=== PATIENT | female | born 1960 | race Caucasian/White ===

== ENCOUNTER 2019-06-04 07:55 | Outpatient (CLI) | payer OTHER, SELFPAY ==
--- NOTE | ~2019-06-04 | MM_ITS ---
EXAMINATION: MM screening [facility] BI w angelita HISTORY: Screening mammogram TECHNIQUE: Craniocaudal and mediolateral oblique 3-D tomosynthesis images were obtained and synthetic 2-D images were generated. CAD analysis was submitted and interpreted. COMPARISON: Prior mammograms dating back to 11/04/2013 BREAST PARENCHYMAL COMPOSITION: There are scattered areas of fibroglandular density. FINDINGS: An asymmetry in the posterior third of the far outer right breast on the craniocaudal view has an appearance similar to prior mammograms, consistent with a benign finding. There is no evidence of suspicious mass, calcification, or architectural distortion to suggest malignancy in either breas t. There has been no suspicious interval change. IMPRESSION: 1. No mammographic evidence of malignancy. 2. Recommend routine screening mammography in one year. BI-RADS Category 2: Benign finding(s). Reviewed, dictated and finalized at location A. APPROVER
== END 2019-06-04 07:56 | disposition home or self-care (01) ==
LOC: ANHIMG 08:00
PROVIDERS: PCP Family Medicine; Visit Provider Family Medicine
DX: Z12.31 Encounter for screening mammogram for malignant neoplasm of breast (principal)
CPT/HCPCS: 77063; 77067

== ENCOUNTER 2020-03-22 02:28 | Outpatient (CLI) | payer OTHER, SELFPAY ==
[2020-03-22 19:47] LABS: SARS-CoV-2 RNA PCR Negative
== END 2020-03-22 02:29 | disposition home or self-care (01) ==
LOC: ANHCOVIDDT 02:28
PROVIDERS: PCP Family Medicine; Visit Provider Internal Medicine Gastroenterology
DX: Z01.812 Encounter for preprocedural laboratory examination (principal); Z20.828 Contact with and (suspected) exposure to other viral communicable diseases
CPT/HCPCS: 87635; C9803; U0003

== ENCOUNTER 2020-03-25 00:49 | Day surgery (SDC) | payer OTHER, SELFPAY ==
[2020-03-21 11:00] VITALS: BMI 23.1
[2020-03-25 11:13] VITALS: BP 133/80; PULSE 65; RESP 16; TEMP 36.8; O2SAT 100
[2020-03-25] MEDS: LACTATED RINGERS 1,000 ML 150 ML IV CONT (11:15)
--- NOTE | 2020-03-25 12:14 | PM.HPGS ---
History of Present Illness History of Present Illness Consent: Risks, benefits, and alternatives have been discussed and questions answered. Patient agrees to proceed with procedure. Chief complaint: neoplasm screening Narrative: Veronica Allan is a 59 year old female here for screening colonoscopy Review of Systems Constitutional: Constitutional: Denies headache(s) and Denies weakness Eyes: Eyes: Denies blurry vision ENT: Reports Normal hearing present, Denies headache(s) and Denies neck pain Cardiovascular: Cardiovascular: Denies chest pain and Denies dyspnea Respiratory: Respiratory: Denies dyspnea Gastrointestinal: Gastrointestinal: Reports no additional gastrointestinal complaints Genitourinary: Genitourinary: Denies dysuria Musculoskeletal: Musculoskeletal: Denies neck pain Integumentary/Breasts: Skin/Breast: Denies dry skin Neurologic: Reports Normal hearing present, Denies headache(s) and Denies weakness Psychiatric: Psychiatric: Denies anxiety Endocrine: Endocrine: Denies change in body appearance Hematologic/Lymphatic: Hematologic/Lymphatic: Denies easy bleeding Allergic/Immunologic: Allergic/Immunologic: Denies urticaria PMFSH Past Medical History Medical History Colon cancer screening De Quervain's disease (radial styloid tenosynovitis) MURTAZA (generalized anxiety disorder) Gastritis and duodenitis GERD (gastroesophageal reflux disease) PAF (paroxysmal atrial fibrillation) PVC (premature ventricular contraction) Tobacco consumption Family History Family History Father Family history of premature coronary heart disease, Onset Age: 68 Hypertension Family history of elevated blood lipids Patient's father is Sibling Family history of premature coronary heart disease, Onset Age: 37 Mother Hypertension Social History Social History Social History: Years smoked: 35 Smoking status: Light tobacco smoker Tobacco type: cigarettes Second hand tobacco smoke exposure: No Smoking end date: 05/06/16 Alcohol intake: never Substance use: never Substance use type: does not use Living arrangements: with family Gender identity (if verbalized by the patient): Female Spiritual care concerns: No Meds Home Medications and Allergies Home Medications Medication Instructions Recorded Confirmed Type fluticasone propionate 50 1 spray NASAL DAILY 04/06/19 03/21/20 History mcg/actuation nasal spray,suspension omeprazole 40 mg capsule,delayed 40 mg PO DAILY #90 cap 04/06/19 03/21/20 Rx release pravastatin 20 mg tablet 20 mg PO DAILY #30 tablet 12/29/19 03/21/20 Rx tretinoin 0.025 % topical cream 1 applic TOPICAL .qd #45 gm 01/18/20 03/21/20 Rx diltiazem HCl 60 mg 60 mg PO BID #60 cap 03/18/20 03/21/20 Rx capsule,extended release 12 hr Ip6 2 cap PO DAILY 03/21/20 03/21/20 History L. gasseri-B. bifidum-B longum 1 cap PO DAILY 03/21/20 03/21/20 History [Probiotic Colon Care] alprazolam [Xanax] 0.175 mg PO BID 03/21/20 03/21/20 History ascorbic acid (vitamin C) 500 mg PO DAILY 03/21/20 03/21/20 History cholecalciferol (vitamin D3) 25 mcg PO DAILY 03/21/20 03/21/20 History [Vitamin D3] coQ10 (ubiquinol) 200 mg PO DAILY 03/21/20 03/21/20 History lisinopril 5 mg PO DAILY 03/21/20 03/21/20 History Allergies Allergy/AdvReac Type Severity Reaction Status Date / Time doxycycline Allergy Unknown hives Verified 03/25/20 11:11 metronidazole Allergy Unknown hives Verified 03/25/20 11:11 Vital Signs Vital Signs - 24 hr 03/25/20 11:13 Temperature 98.2 F Pulse Rate 65 Respiratory Rate 16 Blood Pressure 133/80 Pulse Oximetry 100 Exam Const: General: comfortable and no acute distress HENMT: General nose exam: Normal nares present Eyes: General: appearance normal, both eyes and all related structures Neck: Neck: n
--- NOTE | 2020-03-25 12:16 | WPDANESEPPF ---
Anes - Initial Pre Proc Eval Procedure: Operation Date: 03/25/20 12:45 Proposed Procedures p Screening Colonoscopy - Bayron Foster MD Date/Time: 03/25/20 12:16 Surgeon: Bayron Foster MD Pre Op Diagnosis: neoplasm screening Patient Data Age: 59 Gender: F Height: 1.7 m Weight: 66.9 kg Last Vital Signs Temp 36.8 C 03/25/20 11:13 Pulse 65 03/25/20 11:13 Resp 16 03/25/20 11:13 BP 133/80 03/25/20 11:13 Pulse Ox 100 03/25/20 11:13 Allergies Allergy/AdvReac Type Severity Reaction Status Date / Time doxycycline Allergy Unknown hives Verified 03/25/20 11:11 metronidazole Allergy Unknown hives Verified 03/25/20 11:11 Home Medications Medication Instructions Recorded Confirmed Type fluticasone propionate 50 1 spray NASAL DAILY 04/06/19 03/21/20 History mcg/actuation nasal spray,suspension omeprazole 40 mg capsule,delayed 40 mg PO DAILY #90 cap 04/06/19 03/21/20 Rx release pravastatin 20 mg tablet 20 mg PO DAILY #30 tablet 12/29/19 03/21/20 Rx tretinoin 0.025 % topical cream 1 applic TOPICAL .qd #45 gm 01/18/20 03/21/20 Rx diltiazem HCl 60 mg 60 mg PO BID #60 cap 03/18/20 03/21/20 Rx capsule,extended release 12 hr Ip6 2 cap PO DAILY 03/21/20 03/21/20 History L. gasseri-B. bifidum-B longum 1 cap PO DAILY 03/21/20 03/21/20 History [Probiotic Colon Care] alprazolam [Xanax] 0.175 mg PO BID 03/21/20 03/21/20 History ascorbic acid (vitamin C) 500 mg PO DAILY 03/21/20 03/21/20 History cholecalciferol (vitamin D3) 25 mcg PO DAILY 03/21/20 03/21/20 History [Vitamin D3] coQ10 (ubiquinol) 200 mg PO DAILY 03/21/20 03/21/20 History lisinopril 5 mg PO DAILY 03/21/20 03/21/20 History Patient hx anesthesia problems: none Family hx anesthesia problems: none [facility] Past Medical History Medical History Colon cancer screening De Quervain's disease (radial styloid tenosynovitis) MURTAZA (generalized anxiety disorder) Gastritis and duodenitis GERD (gastroesophageal reflux disease) PAF (paroxysmal atrial fibrillation) PVC (premature ventricular contraction) Tobacco consumption Family History Family History Father Family history of premature coronary heart disease, Onset Age: 68 Hypertension Family history of elevated blood lipids Patient's father is Sibling Family history of premature coronary heart disease, Onset Age: 37 Mother Hypertension Social History Social History Social History: Years smoked: 35 Smoking status: Light tobacco smoker Tobacco type: cigarettes Second hand tobacco smoke exposure: No Smoking end date: 05/06/16 Alcohol intake: never Substance use: never Substance use type: does not use Living arrangements: with family Gender identity (if verbalized by the patient): Female Spiritual care concerns: No Anes - Eval Final PreProcedure Day of Procedure 03/25/20 12:16 Patient weight: normal Heart: regular rate and rhythm Lungs: clear to auscultation and normal air movement Airway: Mallampati scale class II Neurological: alert and oriented Last oral intake: >/= 8 hours ASA classification: III Emergent: no Anesthetic plan: proceed Anesthesia type and monitoring: general GIVS Informed Consent: The patient's anesthetic plan and its attendant risks and benefits were discussed with the patient/family/POA. Questions were solicited and answers provided to the satisfaction of the patient/family/POA.
[2020-03-25 12:34] VITALS: BP 105/59; PULSE 65; RESP 20; O2SAT 99
[2020-03-25 12:44] VITALS: BP 108/63; PULSE 64; RESP 19; O2SAT 100
== END 2020-03-25 13:04 | disposition home or self-care (01) ==
PROVIDERS: PCP Family Medicine; Visit Provider Internal Medicine Gastroenterology
PROC: 0DJD8ZZ Inspection of Lower Intestinal Tract, Via Natural or Artificial Opening Endoscopic (ICD-10-PCS; CPT 45378; principal; 2020-03-25 12:45)
DX: Z12.11 Encounter for screening for malignant neoplasm of colon (principal); D12.0 Benign neoplasm of cecum; K64.8 Other hemorrhoids; I48.0 Paroxysmal atrial fibrillation; I49.3 Ventricular premature depolarization; K21.9 Gastro-esophageal reflux disease without esophagitis; F41.1 Generalized anxiety disorder; Z87.891 Personal history of nicotine dependence
CPT/HCPCS: 45385; 88305; J2704; J7120

== ENCOUNTER 2020-06-23 10:04 | Outpatient (CLI) | payer OTHER, SELFPAY ==
--- NOTE | ~2020-06-23 | MM_ITS ---
EXAMINATION: MM screening [facility] BI w angel[facility] HISTORY: Screening TECHNIQUE: Craniocaudal and mediolateral oblique 3-D tomosynthesis images were obtained and synthetic 2-D images were generated. CAD analysis was submitted and interpreted. COMPARISON: Comparison to multiple prior studies sequentially, with oldest reviewed study dated 06/2013. BREAST PARENCHYMAL COMPOSITION: There are scattered areas of fibroglandular density. FINDINGS: There is no evidence of suspicious mass, calcification, or architectural distortion to sugg est malignancy in either breast. There has been no suspicious interval change. IMPRESSION: 1. No mammographic evidence of malignancy. 2. Recommend routine screening mammography in one year. BI-RADS Category 1: Negative Reviewed, dictated and finalized at location A. ATIONS ARCHITECT
== END 2020-06-23 10:05 | disposition home or self-care (01) ==
LOC: ANHIMG 10:06
PROVIDERS: PCP Family Medicine; Visit Provider Family Medicine
DX: Z12.31 Encounter for screening mammogram for malignant neoplasm of breast (principal)
CPT/HCPCS: 77063; 77067

== ENCOUNTER 2021-02-25 19:47 | Observation (INO) | payer OTHER, SELFPAY ==
[2021-02-25] VITALS (50 sets, daily range): BP systolic 102–181; BP diastolic 71–134; PULSE 81–144; RESP 11–30; TEMP 36.4–36.6; O2SAT 98–100
--- NOTE | ~2021-02-25 | XR_ITS ---
XR chest 1V portable DATE: 02/25/2021 20:26 INDICATION: Chest heaviness. Atrial fibrillation with rapid ventricular response 2 hours ago. Hyperte nsion. PVCs. TECHNIQUE: Portable upright AP chest on 02/25/2021 at 2021 hours COMPARISON: 05/09/2017 PA and lateral chest FINDINGS: Bilateral hyperinflation. No pulmonary infiltrate or consolidation, pleural effusion or pul monary vascular congestion or pneumothorax. Normal heart size. No hilar or mediastinal enlargement is evident. Diffuse osteopenia. IMPRESSION: No active cardiopulmonary disease Reviewed, dictated and finalized at location A.
--- NOTE | 2021-02-25 19:51 | ECG_ITS ---
Measurements Intervals Sims Rate: 109 P: SD: 0 QRS: -1 QRSD: 98 T: -13 QT: 338 QTc: 456 Interpretive Statements ATRIAL FIBRILLATION WITH RAPID VENTRICULAR RESPONSE INCOMPLETE RIGHT BUNDLE BRANCH BLOCK ST-T WAVE ABNORMALITY IN INFERIOR LEADS- CONSIDER ISCHEMIA BASELINE ARTIFACT- II, III, AVR, AVF, V1, V3-V6 ABNORMAL ECG Electronically Signed On 02-25-2021 23:45:37 CDT by Ovidio Ochoa D.O.
--- NOTE | 2021-02-25 20:10 | PC.NURSE ---
Pt reports PVCs with antihistamines
--- NOTE | 2021-02-25 20:22 | PC.NURSE ---
Verbal order from Dr Jennings for 10 mg of IV cardizem
--- NOTE | 2021-02-25 20:37 | PC.NURSE ---
Dr Jennings at bedside. Pt HR 137. Verbal order changed to 20 mg Diltiazem
--- NOTE | 2021-02-25 20:42 | PC.NURSE ---
Clarified with JAZLYN Coon to give protocol aspirin
[2021-02-25 20:43] LABS: Basophils Absolute Auto 0.1 K/mm3 (0.0-0.1); Basophils Percent Auto 0.8 % (0.2-1.2); Eosinophils Absolute Auto 0.3 K/mm3 (0-0.3); Eosinophils Percent Auto 1.9 % (0-4.4); Hematocrit 44.1 % (37.0-47.0); Hemoglobin 14.7 g/dL (12.0-15.0); Immature Granulocyte Absolute 0.16 K/mm3 (0.00-0.031); Immature Granulocyte Percent A 1.1 % (0-0.5); Lymphocytes Absolute Auto 4.67 K/mm3 (0.9-3.2); Lymphocytes Percent Auto 31.1 % (18.3-44.2); Mean Corpuscular HGB Conc 33.3 g/dl (32-36); Mean Corpuscular Hemoglobin 30.8 pg (26-34); Mean Corpuscular Volume 92.5 fl (80-100); Mean Platelet Volume 9.1 fl (7.4-10.4); Monocytes Absolute Auto 1.1 K/mm3 (0.1-0.6); Neutrophils Absolute Auto 8.7 K/mm3 (1.3-6.7); Neutrophils Percent Auto 58.1 % (45.5-73.1); Platelet Count Result 352 k/mm3 (150-375); Red Blood Count 4.77 M/mm3 (4.2-5.4); Red Cell Distribution Width 12.7 % (11.5-14.5)
[2021-02-25] MEDS: ASPIRIN 81 MG CHEWABLE TABLET 324 MG PO (20:45)
[2021-02-25] MEDS: dilTIAZem HCl INJ 25 MG/5 ML VIAL 20 MG IV PUSH (20:49)
[2021-02-25 20:53] LABS: INR 0.9; Prothrombin Time 11.6 Seconds (11.1-14.7)
[2021-02-25 20:54] LABS: Partial Thromboplastin Time 26.8 SECONDS (22.3-36.8)
[2021-02-25 20:57] LABS: Anion Gap 10 mmol/L (8-16); Blood Urea Nitrogen 15 mg/dL (7-17); Calcium 10.1 mg/dL (8.4-10.2); Carbon Dioxide 25 mmol/L (22-30); Chloride 106 mmol/L (98-107); Estimated CRCL calculation 73 ml/min; Estimated Glomerular Filt Rate > 60; Glucose 99 mg/dL (65-110); Potassium 3.7 mmol/L (3.4-5.0); Sodium 141 mmol/L (137-145)
--- NOTE | 2021-02-25 21:00 | PC.NURSE ---
Cardizem pushed slowly over 7 minutes. HR 88, SpO2 100%, BP 117/85
[2021-02-25 21:09] LABS: Troponin I < 0.012 ng/mL (0.000-0.034)
--- NOTE | 2021-02-25 21:24 | ED.GENADULT ---
HPI - General Adult General Chief complaint: Arrhythmia/Palpitations Stated complaint: tachycardia Time Seen by Provider: 02/25/21 20:12 History of Present Illness HPI narrative: Patient 60-year-old female presents the emergency department with chief complaint of fast heart rate and irregular heartbeat. The patient reports she has had episodes before in the past of atrial fibrillation but has had a Holter monitor that showed that she is just been having some PVCs. Patient does report that she takes Cardizem daily. Patient reports she is not on any anticoagulant. Patient states that she tried Valsalva maneuvers at home to try to convert herself without success and was running in the 120s to 130s. Patient states she had a little bit of fullness in her chest but would not describe it is official chest pain. Patient denies fever denies vomiting denies diarrhea denies abdominal pain. Related Data Home Medications Medication Instructions Recorded Confirmed fluticasone propionate 50 1 spray NASAL DAILY 04/06/19 02/09/21 mcg/actuation nasal spray,suspension Ip6 2 cap PO DAILY 03/21/20 02/09/21 L. gasseri-B. bifidum-B longum 1 cap PO DAILY 03/21/20 02/09/21 [Probiotic Colon Care] ascorbic acid (vitamin C) 500 mg PO DAILY 03/21/20 02/09/21 cholecalciferol (vitamin D3) 25 mcg PO DAILY 03/21/20 02/09/21 [Vitamin D3] coQ10 (ubiquinol) 200 mg PO DAILY 03/21/20 02/09/21 magnesium 125 mg PO 02/25/21 Allergies Allergy/AdvReac Type Severity Reaction Status Date / Time doxycycline Allergy Unknown hives Verified 02/25/21 20:08 metronidazole Allergy Unknown hives Verified 02/25/21 20:08 buspirone [From BuSpar] AdvReac Intermediate elevated BP Verified 02/25/21 20:08 cetirizine [From Zyrtec] AdvReac Other Verified 02/25/21 20:10 diphenhydramine AdvReac Other Verified 02/25/21 20:10 [From Benadryl] metoprolol AdvReac Other Verified 02/25/21 20:10 Review of Systems Review of Systems: A 10 system review of systems was completed on the patient and is negative except for what is stated in the HPI. Nursing and ancillary documentation was reviewed. PMFSH Past Medical History Medical History Colon cancer screening De Quervain's disease (radial styloid tenosynovitis) MURTAZA (generalized anxiety disorder) Gastritis and duodenitis GERD (gastroesophageal reflux disease) PAF (paroxysmal atrial fibrillation) PVC (premature ventricular contraction) Tobacco consumption Surgical History Surgical History H/O colonoscopy with polypectomy repeat in 2024 Family History Family History Father Family history of premature coronary heart disease, Onset Age: 68 Hypertension Family history of elevated blood lipids Patient's father is Sibling Family history of premature coronary heart disease, Onset Age: 37 Mother Hypertension Social History Social History Social History: Years smoked: 35 Smoking status: Former smoker Tobacco type: cigarettes Second hand tobacco smoke exposure: No Smoking end date: 05/06/16 Alcohol intake: never Substance use: never Substance use type: does not use Gender identity (if verbalized by the patient): Female Sexual Orientation (if Verbalized by the Patient): Straight or Heterosexual Spiritual care concerns: No Exam Narrative: GENERAL: Well-appearing, well-nourished, and in no acute distress. HEAD: Normocephalic, atraumatic. EYES: PERRLA and EOMI. ENT: Nares clear, no rhinorrhea or epistaxis. Mucous membranes moist. NECK: Supple. CHEST: Clear to auscultation. No respiratory distress. HEART: Tachycardic irregularly irregular rhythm. No murmur heard. Normal peripheral pulses. ABDOMEN: Soft, nontender, nondistended, normal active bowel sounds. EXTREMITI
[2021-02-25 22:07] LABS: Add Urine Microscopic? YES; Appearance Urine Clear (Clear); Bacteria Urine Trace /hpf; Bilirubin Urine Negative (Negative); Blood Urine 1+ (Negative); Color Urine Colorless (Yellow); Glucose Urine UA Negative (Negative); Ketones Urine Negative (Negative); Leukocyte Esterase Ur Negative LEU/UL (Negative); Nitrate Urine Negative (Negative); Protein Urine Negative (Negative); Squamous Epithelial Cell Urine Rare /hpf (Few); Urobilinogen Urine Negative mg/dL (<2.0); WBC Urine 0-3 /hpf
[2021-02-25 22:13] LABS: Specific Grav Ur 1.002 (1.001-1.035)
[2021-02-25 22:15] LABS: Magnesium 2.1 mg/dL (1.6-2.3)
--- NOTE | 2021-02-25 22:17 | PC.NURSE ---
Cardizem drip started at 5 mg / hour per orders. HR 114, 98%, 102/77
--- NOTE | 2021-02-25 22:28 | PM.IMHP ---
H&P: HPI History of Present Illness Date/Time: 02/25/21 23:00 Chief Complaint: Increased heart rate Narrative: 60-year-old female with a past medical history of anxiety, GERD and paroxysmal atrial fibrillation who presented to the ER from home via private vehicle due to elevated heart rate and palpitations. She initially had an episode of atrial fibrillation back in 2018. She did not want be placed on a beta-danelle that time due to history of symptomatic bradycardia with beta-danelle. She was eventually sent home with [facility] but she never got the prescription filled because she was concerned about the medication after reading about it. She later had a heart Holter August 2018 which demonstrated occasional ectopic activity with PVCs without evidence of lory atrial fibrillation. She reports that she has symptomatic even with PVCs and ectopic beats. She knows immediately whenever she was into AFib. She is eventually started on Cardizem to treat her hypertension and palpitations. Her chads Vasc score was 2 she was not placed on anticoagulants due to history of duodenitis and GI bleeding in 2018. Cardiology notes also indicate the patient was a low risk and not require chronic anticoagulation. She reports frequent symptoms of irregular heartbeat consistent with her history of PVCs. However, over the last several months since her mother in October, after falling down a flight of stairs, she has been under increased stress. Her brother has schizophrenia and she is trying to move her brother out of her mother's home. She has subsequently had increased episodes of palpitations. She states that over the last week she has had several times of palpitations that have lasted for several minutes. Most the time when she bears down she can alleviate the symptoms. She came in today when her symptoms started around 6:30 p.m. when her symptoms persisted despite Valsalva maneuver. She denies any caffeine consumption, supplement consumption, missed medication doses, or illicit substance use. She did smoke a couple of cigarettes today. She reports that she actually quit smoking in 2018 and only smokes occasional cigarette when under extreme stress. She denies having any chest pain. She has noticed dyspnea on exertion such as climbing a flight of stairs at work. She reports that she will take couple of minutes to recover. She has not had any orthopnea, paroxysmal nocturnal dyspnea or lower extremity swelling. She thinks that the shortness of breath with climbing stairs is due to wearing a mask at work. She reports her last echocardiogram was in 2017 and demonstrated thickening of the mitral leaflets. She previously used to follow with Dr. Melendez but would like to switch to a different it systems administrator within the same Cardiology group. She denies any cough, congestion, fever, or known ill contacts. The patient was still in AFib RVR when I evaluated her in the ER. Approximately 20 minutes after patient arrived to the IMU she converted normal sinus rhythm and had a heart rate in the 55-65 range. She does report a history of GERD. She has not been having any epigastric discomfort or substernal burning. However recent weeks she did notice some burning in her posterior throat. She was initially given a course of steroids which helped her symptoms until the steroids were tapered off. She went to see her primary care physician who felt the symptoms were due to patient's reflux due to some posterior oral pharyngeal erythema. She reports an associated hoarseness to her voice. She has not had any fevers or chills. Her symptoms did improve after taking Gaviscon. She has been compliant with her home omeprazole. She states that she cannot take H2 danelle such as Pepcid because they cause her to have more palpitations. Review of Systems Review of Systems: 12 systems were reviewed with pertinent positives and negatives per HPI. Except as documented in the HPI, all other systems were
--- NOTE | 2021-02-25 23:56 | PC.NURSE ---
This patient, Veronica Allan, was admitted to IMU Room 210-01. Patient/family oriented to hospital policies and general routines including ID bracelet, bed and alarms, visiting hours, pain management, procedures, bathroom and other care routines, personal items, smoking policy, room service/diet, and visiting hours. Information on how to activate the Rapid Response Team has been discussed. Patient/Family are encouraged to report perceived risks to care and to ask questions if they do not understand what they are told or what they should do.
[2021-02-26] VITALS (11 sets, daily range): BP systolic 104–126; BP diastolic 65–79; PULSE 54–82; RESP 15–18; TEMP 36.5–36.7; O2SAT 97–100
[2021-02-26 01:08] LABS: Troponin I < 0.012 ng/mL (0.000-0.034)
[2021-02-26] MEDS: ALPRAZolam (*CRX) 0.25 MG TABLET (01:19)
[2021-02-26 04:21] LABS: Hematocrit 39.9 % (37.0-47.0); Hemoglobin 13.6 g/dL (12.0-15.0); Mean Corpuscular HGB Conc 34.1 g/dl (32-36); Mean Corpuscular Hemoglobin 30.9 pg (26-34); Mean Corpuscular Volume 90.7 fl (80-100); Mean Platelet Volume 9.4 fl (7.4-10.4); Platelet Count Result 341 k/mm3 (150-375); Red Cell Distribution Width 12.7 % (11.5-14.5); White Blood Count 12.2 K/mm3 (4.5-10.0)
[2021-02-26 04:34] LABS: Anion Gap 7 mmol/L (8-16); Blood Urea Nitrogen 17 mg/dL (7-17); Calcium 9.4 mg/dL (8.4-10.2); Carbon Dioxide 25 mmol/L (22-30); Chloride 107 mmol/L (98-107); Estimated CRCL calculation 73 ml/min; Estimated Glomerular Filt Rate > 60; Glucose 94 mg/dL (65-110); Potassium 4.1 mmol/L (3.4-5.0); Sodium 139 mmol/L (137-145)
[2021-02-26 04:46] LABS: Troponin I < 0.012 ng/mL (0.000-0.034)
[2021-02-26] MEDS: MAGNESIUM OXIDE 200 MG TABLET PO (08:07)
[2021-02-26] MEDS: lisinopriL 5 MG TABLET PO (08:07)
[2021-02-26] MEDS: PRAVASTATIN SODIUM 20 MG TABLET PO (08:07)
[2021-02-26] MEDS: PANTOPRAZOLE SODIUM IV 40 MG VIAL IV PUSH (08:07)
[2021-02-26] MEDS: FLUTICASONE PROPIONATE 0.05% NA SPR 16 GM BTL (*BKC) 1 SPRAY NASAL (08:09)
--- NOTE | 2021-02-26 10:22 | PM.CNCAR ---
Assessment and Plan Assessment and plan (1) PAF (paroxysmal atrial fibrillation): Code(s): I48.0 - Paroxysmal atrial fibrillation Status: Acute Assessment and Plan: She is back in sinus rhythm at this point. Recommend that she continue her current dose of diltiazem. Atrial fibrillation likely related increased stress although other possibilities do exist including ischemia. Stress test to be performed as an outpatient. Exercise stress echocardiogram will be performed. She also needs an outpatient echocardiogram to evaluate her murmur in mitral valve. Regarding anticoagulation versus anti-platelet therapy. She has a chads Vasc score of 2 and a chads score of 1. At this point she does not want to have full anticoagulation but is willing to start aspirin. Will start aspirin 325 mg p.o. daily. Enteric-coated aspirin recommended and she does take omeprazole which will help reduce risk of esophagitis or gastritis. If she wishes reestablished with electrophysiology, will refer her back to [facility]. Follow-up with us as an outpatient (2) PVC (premature ventricular contraction): Code(s): I49.3 - Ventricular premature depolarization Status: Acute Assessment and Plan: Continue diltiazem. (3) Benign essential HTN: Code(s): I10 - Essential (primary) hypertension Status: Acute Assessment and Plan: At goal. (4) Tobacco consumption: Code(s): Z72.0 - Tobacco use Status: Acute Assessment and Plan: Tobacco abuse counseling was performed. History of Present Illness History of Present Illness Consult date/time: 02/26/21 10:22 Requesting physician: Sunil Jennings MD Consult reason: atrial fibrillation Reason For Visit: Afib w/RVR Narrative: Reason for consultation: Atrial fibrillation Date of service 02/26/2021 Requesting provider: Dr. Jennings History patient is a 60-year-old female who does have a history of paroxysmal atrial fibrillation. She had seen Dr. Melendez in the past as well as Dr. Mauricio for [place] regarding electrophysiology opinion. She also has a history of PVCs. Symptoms started back in 2018. She was on a beta-danelle but with symptomatic bradycardia and felt poorly. There was a conversation about switching her to Multaq or sotalol but she did not want does medications either. She did see Dr. Mauricio for an opinion and conversation and decision was to start diltiazem. She has remained on diltiazem since that time. She has been under more stress as of late. Her mother and there is more stress with a brother who has schizophrenia. More recently she has been having some atrial fibrillation couple times per week which will last for 5-10 seconds at a time. She also has her standard PVCs which feels like a flip-flop. They are different feelings. She did have some fullness yesterday after her tachycardia started. The fullness in her chest has since stopped. She did developed tachycardia at around 6:30 a.m. yesterday evening. She came to the hospital and found to be in atrial fibrillation with rapid ventricular response. She was given diltiazem and eventually converted to sinus rhythm. She otherwise denies any chest pain, shortness of breath, syncope, presyncope, paroxysmal nocturnal dyspnea, orthopnea, edema palpitations. She is not on anticoagulation. She has a chads score of 1 and a chads Vasc score of 2. Review of Systems Review of Systems: All systems reviewed & are unremarkable except as noted in HPI and below Constitutional: Constitutional: Denies weakness Eyes: Eyes: Denies blurry vision ENT: Reports Normal hearing present Cardiovascular: Cardiovascular: Denies chest pain and Reports palpitations Respiratory: Respiratory: Denies dyspnea Gastrointestinal: Gastrointestinal: Denies abdominal pain Genitourinary: Genitourinary: Denies flank pain Musculoskeletal: Musculoskeletal: Denies back pain and Denies neck pain Int
--- NOTE | 2021-02-26 11:03 | PM.DS ---
DS: Admitting Diagnosis Discharge Date 02/22/2021 Admitting Diagnosis palpitation DS: Discharge Diagnosis Discharge Diagnosis (1) Atrial fibrillation with RVR: Code(s): I48.91 - Unspecified atrial fibrillation Status: Acute Assessment and Plan: The patient converted to sinus rhythm after arrival IMU. Cardizem drip has subsequently been discontinued. resumed the patient's home Cardizem. Given the patient's report of symptoms of dyspnea on exertion with climbing stairs will check echocardiogram to further delineate cardiac structure and function as her last echo was in 2018. this can be done as an outpatient basis and is already is scheduled The patient is an established patient with [facility] cardiology (heart care group). She will need follow-up with Cardiology in long-term. She would like to change milieu manager within the group. I notified her that she could discuss this with Cardiology time of consult. she will follow-up with Dr. suh who evaluated her during the hospital stay as well. The patient's chads Vasc score is 2 given she is a female and has a history of essential hypertension. Patient would benefit from long-term anticoagulants but will defer initiation to Cardiology and the patient after discussion of risks and benefits. Patient does not seem to be all that interested in long-term anticoagulants. This was discussed with the patient and was willing to start aspirin 325 mg daily She also sees Dr. Mauricio from [facility] team who she can follow up with as well She also has frequent PVCs which feels like a flip-flop. And very symptomatic (2) GERD (gastroesophageal reflux disease): Qualifiers: Esophagitis presence: esophagitis presence not specified Qualified Code(s): K21.9 - Gastro-esophageal reflux disease without esophagitis Code(s): K21.9 - Gastro-esophageal reflux disease without esophagitis Status: Acute Assessment and Plan: The patient does have symptoms concerning for worsening GERD/reflux. Will place patient on IV Protonix b.i.d. currently. May consider addition of care if 8 versus continuing Gaviscon. She may benefit from referral to Gastroenterology as outpatient. She has seen Dr. Foster in the past. Will continue omeprazole as an outpatient basis as previously done (3) Tobacco consumption: Code(s): Z72.0 - Tobacco use Status: Acute Assessment and Plan: I discussed with the patient and any use of tobacco could cause exacerbate cardiac rhythm issues. She verbalized understanding. She does not intend to continue smoking. (4) Leukocytosis: Qualifiers: Leukocytosis type: unspecified Qualified Code(s): D72.829 - Elevated white blood cell count, unspecified Code(s): D72.829 - Elevated white blood cell count, unspecified Status: Acute Assessment and Plan: Mild leukocytosis. The patient does have some posterior oral pharyngeal erythema but appearance is not consistent with strep. Patient has no evidence of acute infectious process. recheck CBC lowered without antibiotic likely reactive DS: Summary Hospital Course Hospital Course: history of present illness:60-year-old female with a past medical history of anxiety, GERD and paroxysmal atrial fibrillation who presented to the ER from home via private vehicle due to elevated heart rate and palpitations. She initially had an episode of atrial fibrillation back in 2018. She did not want be placed on a beta-danelle that time due to history of symptomatic bradycardia with beta-danelle. She was eventually sent home with [facility] but she never got the prescription filled because she was concerned about the medication after reading about it. She later had a heart Holter August 2018 which demonstrated occasional ectopic activity with PVCs without evidence of lory atrial fibrillation. She reports that she has symptomatic even with PVCs
== END 2021-02-26 11:53 | disposition home or self-care (01) ==
LOC: ANHED 22:46 → ANHIMU 02-26 11:03
PROVIDERS: Admitting Provider Internal Medicine; Emergency Provider Emergency Medicine; PCP Family Medicine; Visit Provider Internal Medicine
DX: I48.91 Unspecified atrial fibrillation (principal); K21.9 Gastro-esophageal reflux disease without esophagitis; D72.829 Elevated white blood cell count, unspecified; I49.3 Ventricular premature depolarization; I10 Essential (primary) hypertension; F17.210 Nicotine dependence, cigarettes, uncomplicated
CPT/HCPCS: 36415; 71045; 80048; 81001; 83735; 84443; 84484; 85025; 85027; 85610; 85730; 93005; 96365; 96366; 96375; 99285; A9270; C9113; G0378

== ENCOUNTER 2021-03-14 18:33 | Observation (INO) | payer OTHER, SELFPAY ==
[2021-03-14] VITALS (20 sets, daily range): BP systolic 113–175; BP diastolic 68–93; PULSE 57–71; RESP 10–24; TEMP 36.6; O2SAT 95–100
--- NOTE | ~2021-03-14 | XR_ITS ---
EXAMINATION: XR chest 2V EXAM DATE: 03/14/2021 19:09 INDICATION: Chest Pinching LT Side, palpitations,@ 1730,Nausea,HTN,AFIB . TECHNIQUE: Frontal and lateral projections of the chest obtained and reviewed. Comparison is made to prior examination from 02/25/2021. FINDINGS: The lungs are hyperinflated which can be seen with chronic obstructive pulmonary disease (a clinical diagnosis of functional impairment), but is not diagnostic of it. The lungs are clear. T here are no pleural effusions. The cardiomediastinal silhouette is within normal limits. There is n o pneumothorax suspected. The bones and soft tissues are unremarkable. IMPRESSION: 1. No acute cardiopulmonary findings. 2. Hyperinflation. Reviewed, dictated and finalized at location A. ER BAGGER
--- NOTE | 2021-03-14 18:37 | ECG_ITS ---
Measurements Intervals [place] Rate: 70 P: 66 ND: 157 QRS: 52 QRSD: 101 T: 41 QT: 401 QTc: 434 Interpretive Statements SINUS RHYTHM INCOMPLETE RIGHT BUNDLE BRANCH BLOCK BORDERLINE ST ABNORMALITY- ANTEROLAT/INF LEADS BASELINE ARTIFACT- II, III, AVR, AVF, V3-V6 BORDERLINE ECG Electronically Signed On 03-14-2021 20:18:26 PLANT CARE WORKER by Ovidio Ochoa D.O.
[2021-03-14 19:08] LABS: Basophils Absolute Auto 0.1 K/mm3 (0.0-0.1); Basophils Percent Auto 0.6 % (0.2-1.2); Eosinophils Absolute Auto 0.3 K/mm3 (0-0.3); Eosinophils Percent Auto 3.4 % (0-4.4); Hematocrit 37.8 % (37.0-47.0); Hemoglobin 12.9 g/dL (12.0-15.0); Immature Granulocyte Absolute 0.05 K/mm3 (0.00-0.031); Immature Granulocyte Percent A 0.5 % (0-0.5); Lymphocytes Absolute Auto 4.54 K/mm3 (0.9-3.2); Mean Corpuscular HGB Conc 34.1 g/dl (32-36); Mean Corpuscular Volume 90.9 fl (80-100); Mean Platelet Volume 9.1 fl (7.4-10.4); Monocytes Absolute Auto 0.7 K/mm3 (0.1-0.6); Neutrophils Absolute Auto 4.2 K/mm3 (1.3-6.7); Neutrophils Percent Auto 42.5 % (45.5-73.1); Platelet Count Result 300 k/mm3 (150-375); Red Blood Count 4.16 M/mm3 (4.2-5.4); Red Cell Distribution Width 12.4 % (11.5-14.5); White Blood Count 9.9 K/mm3 (4.5-10.0)
[2021-03-14 19:17] LABS: INR 0.9; Prothrombin Time 11.8 Seconds (11.1-14.7)
[2021-03-14 19:18] LABS: Partial Thromboplastin Time 25.4 SECONDS (22.3-36.8)
[2021-03-14 19:21] LABS: Anion Gap 9 mmol/L (8-16); Blood Urea Nitrogen 15 mg/dL (7-17); Calcium 9.6 mg/dL (8.4-10.2); Carbon Dioxide 27 mmol/L (22-30); Chloride 102 mmol/L (98-107); Estimated CRCL calculation 52 ml/min; Estimated Glomerular Filt Rate 57; Glucose 121 mg/dL (65-110); Potassium 3.6 mmol/L (3.4-5.0); Sodium 138 mmol/L (137-145)
--- NOTE | 2021-03-14 19:25 | ED.GENADULT ---
HPI - General Adult General Chief complaint: Chest Pain Stated complaint: fast heart rate, chest discomfort Time Seen by Provider: 03/14/21 18:58 Source: patient and RN notes reviewed History of Present Illness HPI narrative: Patient is 60 y/o female complaining of chest pain and fast heart rate starting about 2 hours ago. She describes her chest discomfort as a fullness and rates as 7/10. Her chest pain radiates to her throat and left shoulder. She check her pulse and her HR was in 130s. She states that she had A fib recently. Related Data Home Medications Medication Instructions Recorded Confirmed fluticasone propionate 50 1 spray NASAL DAILY 04/06/19 02/26/21 mcg/actuation nasal spray,suspension Ip6 2 cap PO DAILY 03/21/20 02/26/21 Probiotic Colon Care 1 cap PO DAILY 03/21/20 02/26/21 ascorbic acid (vitamin C) 500 mg PO DAILY 03/21/20 02/26/21 cholecalciferol (vitamin D3) 25 mcg PO DAILY 03/21/20 02/26/21 [Vitamin D3] coQ10 (ubiquinol) 200 mg PO DAILY 03/21/20 02/26/21 magnesium 100 mg PO DAILY 02/26/21 02/26/21 Allergies Allergy/AdvReac Type Severity Reaction Status Date / Time doxycycline Allergy Unknown hives Verified 03/03/21 08:38 metronidazole Allergy Unknown hives Verified 03/03/21 08:38 buspirone [From BuSpar] AdvReac Intermediate elevated BP Verified 03/03/21 08:38 cetirizine [From Zyrtec] AdvReac Other Verified 03/03/21 08:38 diphenhydramine AdvReac Other Verified 03/03/21 08:38 [From Benadryl] metoprolol AdvReac Other Verified 03/03/21 08:38 Review of Systems Constitutional: Constitutional: Denies chills, Denies fever(s), Denies headache(s) and Denies weakness Eyes: Eyes: Denies blurry vision ENT: Denies headache(s) and Denies neck pain Cardiovascular: Cardiovascular: Reports chest pain, Reports rapid heart rate and Denies dyspnea Respiratory: Respiratory: Denies cough and Denies dyspnea Gastrointestinal: Gastrointestinal: Denies abdominal pain, Denies diarrhea, Denies nausea and Denies vomiting Genitourinary: Genitourinary: Denies hematuria and Denies dysuria Musculoskeletal: Musculoskeletal: Denies back pain and Denies neck pain Neurologic: Denies headache(s) and Denies weakness PMFSH Past Medical History Medical History Colon cancer screening De Quervain's disease (radial styloid tenosynovitis) Essential hypertension MURTAZA (generalized anxiety disorder) Gastritis and duodenitis Resulting in GI bleed 2017 GERD (gastroesophageal reflux disease) PAF (paroxysmal atrial fibrillation) PVC (premature ventricular contraction) Tobacco consumption Trigeminal neuralgia of right side of face Surgical History Surgical History H/O colonoscopy with polypectomy (~03/2020) repeat in 2024 History of oophorectomy, unilateral Resection of ovarian cyst Family History Family History Father Hypertension Acute myocardial infarction, Onset Age: 75 Hyperlipidemia Sibling Schizophrenia Brother Mother , At age 82 after falling on stairs. Hypertension Social History Social History Social History: She lives with her of 10 years. 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 She denies any alcohol or illicit substance use. She smoked as much as a half a pack of cigarettes per day time she has teenager into the age of 56. She still smokes in times of stress. Primary care physician: Dr. Aubrie Pederson Code status: Full code Surrogate decision maker: Smoking packs per day: 0.25 Smoking cigarettes per day: 5.0 Years smoked: 30 Smoking pack-years: 7.50 Smoking status: Former smoker Tobacco type: cigarettes Second hand tobacco smoke exposure: No Smoking end date: 05/06/16 Alcohol intake: never Estrada
[2021-03-14 19:32] LABS: Troponin I < 0.012 ng/mL (0.000-0.034)
--- NOTE | 2021-03-14 19:34 | PC.NURSE ---
Clarified with Dr Melendez, Pt takes 324 of aspirin daily, taken this AM. Cancelled protocol aspirin, verbal orders for GI cocktail for acid reflux.
[2021-03-14] MEDS: BELLADONNA ALK/PHENOB ELIX 10 ML, MAG HYDROX/ALUMINUM HYD/SIMETH 30 ML, LIDOCAINE HCL 2... PO (19:40)
[2021-03-14 22:00] LABS: Troponin I < 0.012 ng/mL (0.000-0.034)
--- NOTE | 2021-03-15 | EST_ITS ---
Patient Info Name: Veronica Allan Age: 60 years : 1960 Gender: Female Ht: 67 in Wt: 150 lbs BSA: 1.80 m2 HR: 62 bpm BP: 147 / 86 mmHg Heart Rhythm: Sinus Rhythm Exam Date: 03/15/2021 1:42 PM Exam Location: [facility] Patient Status: Outpatient Admit Date: 03/14/2021 Staff Ordering Physician: Rosa Polo Loss Prevention Officer: January Carias RDCS Attending Provider: DR JACI DYER Referring Physician: Melani GUTIERREZ; Exercise Technologist: Celine Hoyt CT Exercise Physician: Cami Jiménez MD Exam Type: CA stress echo Study Info Indications R07.9 - Chest pain, unspecified Treadmill exercise stress echocardiogram is performed. Summary 1. Left ventricular systolic function is hyperdynamic with an estimated ejection fraction of > 70 % and a reduction of chamber size with exercise. 2. Mild prolapse of the anterior mitral leaflet. 3. Hypertensive blood pressure response. 4. Good exercise tolerance. 5. Frequent APCs at peak exercise. 6. Negative stress echocardiogram for ischemia. Stress Echo Findings Left Ventricle Left ventricular systolic function is hyperdynamic with an estimated ejection fraction of > 70 % and a reduction of chamber size with exercise. Left Ventricle Left ventricular chamber size, wall thickness, systolic and diastolic function are normal with no regional wall motion abnormalities with an estimated ejection fraction of 60-65%. Left ventricular chamber dimension is normal. Left ventricular systolic function is Empty with an estimated ejection fraction of Empty. There is no increased left ventricular wall thickness. Left ventricular septal wall motion is normal. The left ventricular diastolic function is normal. Right Ventricle Right ventricular chamber dimension is normal. Right ventricular systolic function is normal. Left Atria Left atrial chamber dimension is normal. Right Atria Right atrial chamber dimension is normal. Aortic Valve The aortic valve is trileaflet. There is no aortic valve sclerosis. There is no aortic valve stenosis. There is no aortic valve regurgitation. Pulmonary Valve The pulmonic valve is normal. There is no pulmonic valve stenosis. There is no pulmonic regurgitation. Mitral Valve Mild prolapse of the anterior mitral leaflet. Mil. The mitral valve has normal leaflets. There is no mitral valve stenosis. There is no mitral valve regurgitation. Tricuspid Valve The tricuspid valve leaflets are normal. There is no significant tricuspid valve stenosis. There is no tricuspid valve regurgitation. No pulmonary hypertension, estimated pulmonary arterial systolic pressure is Empty. Pericardium The pericardium appears normal. There is no pericardial effusion. Inferior Vena Cava Normal inferior vena cava with <50% collapse upon inspiration consistent with Empty right atrial pressure, Empty. Aorta The aortic root size at the sinus of Valsalva is normal. The prox ascending aorta size is normal. Ventricles Name Value Normal LV Fractional Shortening/Ejection Fraction 2D/MM Visually Estimated EF 70 % 54-74 Protocol: Grey Stress ECG Details
[2021-03-15 01:19] LABS: Troponin I < 0.012 ng/mL (0.000-0.034)
[2021-03-15 02:01] VITALS: BP 124/80; PULSE 67; RESP 17; O2SAT 97
[2021-03-15 07:00] VITALS: BP 136/98; PULSE 58; RESP 18; O2SAT 99
[2021-03-15 08:42] VITALS: BMI 25.1
[2021-03-15 09:00] VITALS: BP 172/104; PULSE 67; RESP 18; O2SAT 98
--- NOTE | 2021-03-15 09:14 | PM.IMHP ---
H&P: HPI History of Present Illness Date/Time: 03/15/21 09:14 <ANTOINE Roberts - Last Filed: 03/15/21 17:28> Chief Complaint: Chest pain <ANTOINE Roberts - Last Filed: 03/15/21 17:28> Narrative: Ms. Allan is a 60 year old female who presents to the emergency department with a complaint of chest pain. This is a patient with a past medical history of paroxysmal atrial fibrillation, PVC's, and hypertension. She had been seen in the past by Dr. Melendez but more recently by Dr. Mauricio at [facility] for his opinion regarding management of her atrial fibrillation. Her atrial fibrillation is relatively well managed on diltiazem though she does have some intermittent episodes of rapid ventricular response. She presented to the emergency department last evening because she experienced an episode of chest pain when she was sitting on her couch. She had been experiencing some heartburn and reflux symptoms but states she suddenly felt a severe tightness in the middle of her chest. She says that around that time she noticed her heart rate was elevated. She tells me she has a very acute awareness of when she is tachycardic and when she is having PVC's. Her PVC's feel like her heart is flopping in her chest vs. racing heartbeat with tachycardia. Due to the severity of her chest pain she decided to proceed to the emergency department for evaluation. She says she does experience this type of tightness and pain in her chest when she is tachycardic but it is not usually as severe as this episode was. She took 0.25mg of lorazepam before she left the house. She reports that her chest pain had resolved by the time she arrived to the ED and has not returned. She was given a GI cocktail in the ED which she reports helped tremendously with her heartburn. At the time of this interview she is chest pain free and does not have any complaints whatsoever. <ANTOINE Roberts - Last Filed: 03/15/21 17:28> Review of Systems Constitutional: Constitutional: Denies fatigue, Denies lethargy and Denies weakness <ANTOINE Roberts - Last Filed: 03/15/21 17:28> Eyes: Eyes: Denies change in vision and Reports dry eyes <ANTOINE Roebrts - Last Filed: 03/15/21 17:28> ENT: Reports Normal hearing present <ANTOINE Roberts - Last Filed: 03/15/21 17:28> Cardiovascular: Cardiovascular: Reports chest pain, Denies pedal edema, Denies leg edema, Denies lightheadedness and Reports palpitations <ANTOINE Roberts - Last Filed: 03/15/21 17:28> Respiratory: Respiratory: Denies cough, Denies hemoptysis, Denies dyspnea and Denies dyspnea on exertion <ANTOINE Roberts - Last Filed: 03/15/21 17:28> Gastrointestinal: Gastrointestinal: Denies abdominal pain, Denies constipation, Reports heartburn, Denies diarrhea and Denies nausea <ANTOINE Roberts - Last Filed: 03/15/21 17:28> Genitourinary: Genitourinary: Denies hematuria and Denies dysuria <ANTOINE Roberts - Last Filed: 03/15/21 17:28> Musculoskeletal: Musculoskeletal: Denies back pain, Denies myalgias and Denies joint swelling <ANTOINE Roberts - Last Filed: 03/15/21 17:28> Integumentary/Breasts: Skin/Breast: Denies pruritus, Denies rash, Denies skin pain and Denies wounds <ANTOINE Roberts - Last Filed: 03/15/21 17:28> Neurologic: Reports headache(s) <ANTOINE Roberts - Last Filed: 03/15/21 17:28> Psychiatric: Psychiatric: Reports anxiety and Denies depression <ANTOINE Roberts - Last Filed: 03/15/21 17:28> Endocrine: Endocrine: Denies cold intolerance, Denies excessive sweating and Reports palpitations <ANTOINE Roberts - Last Filed: 03/15/21 17:28> Hematologic/Lymphatic: Hematologic/Lymphatic: Denies easy bleeding and Denies easy bruising <ANTOINE Roberts - Last Filed: 03/15/21 17:28> Allergic/Immunologic: Allergic/Immunologic: Reports itchy eyes, Denies lip swelling and Denies seasonal rhinorrhea <Rosa Polo A
--- NOTE | 2021-03-15 10:15 | ADMGEN ---
This patient, Veronica Allan, was admitted to [facility]U OF PT FROM ER. Patient/family oriented to hospital policies and general routines including ID bracelet, bed and alarms, visiting hours, pain management, procedures, bathroom and other care routines, personal items, smoking policy, room service/diet, and visiting hours. Information on how to activate the Rapid Response Team has been discussed. Patient/Family are encouraged to report perceived risks to care and to ask questions if they do not understand what they are told or what they should do.
[2021-03-15 10:25] VITALS: BP 157/92; PULSE 60; RESP 19; O2SAT 98
[2021-03-15 10:30] VITALS: BMI 23.7
[2021-03-15 10:50] VITALS: PULSE 65
[2021-03-15] MEDS: ACETAMINOPHEN 325 MG TABLET 650 MG PO (11:21)
[2021-03-15 12:00] VITALS: BP 161/78; PULSE 62; RESP 18; TEMP 36.2; O2SAT 98
--- NOTE | 2021-03-15 13:27 | PC.NURSE ---
DOWN VIA WC FOR STRESS ECHO.
--- NOTE | 2021-03-15 14:35 | PC.NURSE ---
RETURNS TO SENIOR JAVA DATA ARCHITECT 6 S/P STRESS ECHO.
--- NOTE | 2021-03-15 15:14 | PM.DS ---
DS: Admitting Diagnosis Discharge Date 03/15/2021 Admitting Diagnosis Chest pain DS: Discharge Diagnosis Discharge Diagnosis (1) Chest pain: Qualifiers: Chest pain type: unspecified Qualified Code(s): R07.9 - Chest pain, unspecified Code(s): R07.9 - Chest pain, unspecified Status: Acute Assessment and Plan: Patient was admitted with some atypical chest discomfort. Troponins were negative. EKG showed no ischemic changes. Stress echo showed no evidence of ischemia with good left ventricular function. This appears to be chest pain not related to coronary disease. Okay for discharge with office follow-up. (2) Mitral valve prolapse: Code(s): I34.1 - Nonrheumatic mitral (valve) prolapse Status: Acute Assessment and Plan: Patient was found have some mitral valve prolapse at the time of her stress echo. Has a history of a mitral valve murmur. Has an echo scheduled at the end of the week at our office. (3) PAF (paroxysmal atrial fibrillation): Code(s): I48.0 - Paroxysmal atrial fibrillation Status: Acute Assessment and Plan: Patient has had 2 episodes of AFib, 1 several years ago, and once in February. Maintaining sinus rhythm on diltiazem. Started on aspirin after her admission in February but is reconsidering anticoagulant therapy. Can discuss further at the time of her upcoming office visit. (4) Atrial premature beats: Code(s): I49.1 - Atrial premature depolarization Status: Acute Assessment and Plan: Carries a history of PVCs, but had frequent APCs during her exercise test. (5) GERD (gastroesophageal reflux disease): Qualifiers: Esophagitis presence: esophagitis presence not specified Qualified Code(s): K21.9 - Gastro-esophageal reflux disease without esophagitis Code(s): K21.9 - Gastro-esophageal reflux disease without esophagitis Status: Acute Assessment and Plan: GERD is a problem, relieved with GI cocktail in the emergency room. Taking omeprazole 40 mg daily. DS: Summary Hospital Course Reason for hospitalization: Chest pain Hospital Course: SD ruled out. Stress echo negative. Will follow-up in the office. Status at Discharge Functional status at discharge: independent ambulation Overall status at discharge: patient is back to baseline Time Spent with Patient Time attestation: Total time spent providing and/or coordinating discharge services: > 35 minutes. Time spent: Greater than 30 minutes Exam Const: General: healthy appearing and no acute distress Eyes: General: appearance normal, both eyes and all related structures Neck: Neck: full ROM Thyroid: thyroid normal Resp: Effort & Inspection: normal respiratory effort Cardio: Rate: regular rate Rhythm: regular rhythm Heart sounds: Murmur heart sound present GI: Inspection: normal to inspection and no edema Skin: General skin exam: no rashes or lesions noted Neuro: General: patient oriented x3 Gait exam (Neuro): Normal gait present Extrem: General: no edema Psych: Appearance: grossly normal and well kempt Attitude: cooperative Thought content: Yes Normal thought content present DS: Data Data Completed and Pending Labs on day of discharge: Labs from last 24 hours 03/15/21 03/14/21 03/14/21 00:52 21:22 18:59 WBC RBC Hgb Hct MCV MCH MCHC RDW Plt Count MPV Immature Gran % (Auto) Neut % (Auto) Lymph % (Auto) [place] % (Auto) Eos % (Auto) Baso % (Auto) Lymph # (Auto) [place] # (Auto) Eos # (Auto) Baso # (Auto) Abs Immat Gran (auto) Absolute Neuts (auto) Absolute Nucleated RBC Nucleated RBC % PT INR APTT Sodium 138 Potassium 3.6 Chloride 102 Carbon Dioxide 27
--- NOTE | 2021-03-15 15:45 | PC.NURSE ---
DISCHARGED HOME, OUT AMBULATORY TO 'S WAITING CAR WITH ALL PERSONAL BELONGINGS AND DISCHARGE PACKET. VOICES NO C/O. NO DISTRESS NOTED.
== END 2021-03-15 15:45 | disposition home or self-care (01) ==
LOC: ANHED 03-15 01:35 → ANHIMU 03-15 01:45 → ANHCPC 03-15 10:07
PROVIDERS: Admitting Provider Internal Medicine Cardiovascular Disease; Emergency Provider Emergency Medicine; PCP Family Medicine; Visit Provider Internal Medicine Cardiovascular Disease
DX: R07.9 Chest pain, unspecified (principal); I10 Essential (primary) hypertension; I48.91 Unspecified atrial fibrillation; Z87.891 Personal history of nicotine dependence; I34.1 Nonrheumatic mitral (valve) prolapse; K21.9 Gastro-esophageal reflux disease without esophagitis
CPT/HCPCS: 36415; 71046; 80048; 84484; 85025; 85610; 85730; 93005; 93351; 99285; A9270; G0378

== ENCOUNTER 2021-04-12 11:07 | Outpatient (CLI) | payer OTHER, SELFPAY ==
--- NOTE | ~2021-04-12 | US_ITS ---
EXAMINATION: US abdomen limited DATE: 04/12/2021 11:46 INDICATION: Midline abdominal pain TECHNIQUE: Multiple grayscale and Doppler ultrasound images of the abdomen were obtained. COMPARISON: None FINDINGS: Pancreas is normal. Liver has normal echogenicity and contour, with a smooth surface. No liver lesion identified. No intrahepatic biliary duct dilation suspected. Portal venous flow was seen in the hepa topetal, normal direction and has normal Doppler waveform. Visualized proximal inferior vena cava is normal. The gallbladder is normal in appearance. There is no cholelithiasis. The common bile duct me asures 6 mm, which is normal. Sonographic Randall sign was reported as negative by the rn placement.Vis ualized portion of the right kidney demonstrates normal echogenicity with no hydronephrosis. IMPRESSION: 1. Normal right upper quadrant ultrasound. Reviewed, dictated and finalized at location B. ORK CONTROL OPERATOR
== END 2021-04-12 11:08 | disposition home or self-care (01) ==
LOC: ANHIMG 11:13
PROVIDERS: PCP Family Medicine; Visit Provider Family Medicine
DX: R11.0 Nausea (principal)
CPT/HCPCS: 76705

== ENCOUNTER 2021-05-09 01:25 | Day surgery (SDC) | payer OTHER, SELFPAY ==
[2021-04-19 15:51] VITALS: BMI 23.5
[2021-05-09 07:16] VITALS: BP 136/82; PULSE 61; RESP 16; TEMP 36.6; O2SAT 100
[2021-05-09] MEDS: LACTATED RINGERS 1,000 ML 150 ML IV CONT (07:18)
--- NOTE | 2021-05-09 08:22 | PM.HPGS ---
History of Present Illness History of Present Illness Consent: Risks, benefits, and alternatives have been discussed and questions answered. Patient agrees to proceed with procedure. Chief complaint: Esophageal Spasm, Duodenitis Narrative: Veronica Allan is a 60 year old female with gerd but better after switched to protonix and also using mylanta. Also noted small amount of blood after wiping, her last colonoscopy had small internal hemorrhoids. Review of Systems Constitutional: Constitutional: Denies headache(s) and Denies weakness Eyes: Eyes: Denies blurry vision ENT: Reports Normal hearing present, Denies headache(s) and Denies neck pain Cardiovascular: Cardiovascular: Denies chest pain and Denies dyspnea Respiratory: Respiratory: Denies dyspnea Gastrointestinal: Gastrointestinal: Reports no additional gastrointestinal complaints Genitourinary: Genitourinary: Denies dysuria Musculoskeletal: Musculoskeletal: Denies neck pain Integumentary/Breasts: Skin/Breast: Denies dry skin Neurologic: Reports Normal hearing present, Denies headache(s) and Denies weakness Psychiatric: Psychiatric: Denies anxiety Endocrine: Endocrine: Denies change in body appearance Hematologic/Lymphatic: Hematologic/Lymphatic: Denies easy bleeding Allergic/Immunologic: Allergic/Immunologic: Denies urticaria PMF Past Medical History Medical History (Updated 05/09/21 @ 08:23 by Bayron Foster MD) Atrial premature beats Colon cancer screening De Quervain's disease (radial styloid tenosynovitis) Essential hypertension MURTAZA (generalized anxiety disorder) Gastritis and duodenitis Resulting in GI bleed 2017 GERD (gastroesophageal reflux disease) Hemorrhoid Mitral valve prolapse PAF (paroxysmal atrial fibrillation) PVC (premature ventricular contraction) Tobacco consumption Trigeminal neuralgia of right side of face Surgical History Surgical History H/O colonoscopy with polypectomy (~03/2020) repeat in 2024 History of oophorectomy, unilateral Resection of ovarian cyst Family History Family History Father Hypertension Acute myocardial infarction, Onset Age: 75 Hyperlipidemia Sibling Schizophrenia Brother Mother , At age 82 after falling on stairs. Hypertension Social History Social History (Updated 04/06/21 @ 10:01 by Sangeeta Duenas) Social History: She lives with her of 10 years. 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 She denies any alcohol or illicit substance use. She smoked as much as a half a pack of cigarettes per day time she has teenager into the age of 56. She still smokes in times of stress. Primary care physician: Dr. Aubrie Pederson Code status: Full code Surrogate decision maker: Smoking packs per day: 0.25 Smoking cigarettes per day: 5.0 Years smoked: 30 Smoking pack-years: 7.50 Smoking status: Former smoker Tobacco type: cigarettes Second hand tobacco smoke exposure: No Smoking end date: 05/06/16 Alcohol intake: never Substance use: never Substance use type: does not use Living arrangements: with family Gender identity (if verbalized by the patient): Female Sexual Orientation (if Verbalized by the Patient): Straight or Heterosexual Spiritual care concerns: No Meds Home Medications and Allergies Home Medications Medication Instructions Recorded Confirmed Type fluticasone propionate 50 1 spray NASAL DAILY 04/06/19 05/09/21 History mcg/actuation nasal spray,suspension tretinoin 0.025 % topical cream 1 applic TOPICAL .qd #45 gm 01/18/20 05/09/21 Rx Ip6 2 cap PO DAILY 03/21/20 05/09/21 History Probiotic Colon Care 1 cap PO DAILY 03/21/20 05/09/21 History ascorbic acid (vitamin C) 500 mg PO DAILY 03/21/20 05/09/21 History cholecalciferol (vitamin D3) 25 mcg PO DA
--- NOTE | 2021-05-09 08:22 | WPDANESEPPF ---
Anes - Initial Pre Proc Eval Procedure: Operation Date: 05/09/21 08:30 Proposed Procedures p Esophagogastroduodenoscopy - Bayron Foster MD s [facility] Hemorrhoid Treatment - Bayron Foster MD Date/Time: 05/09/21 08:22 Surgeon: Bayron Foster MD Pre Op Diagnosis: Esophageal Spasm, Duodenitis Patient Data Age: 60 Gender: F Height: 1.7 m Weight: 68.1 kg Last Vital Signs Temp 97.8 F 05/09/21 07:16 Pulse 61 05/09/21 07:16 Resp 16 05/09/21 07:16 BP 136/82 05/09/21 07:16 Pulse Ox 100 05/09/21 07:16 Allergies Allergy/AdvReac Type Severity Reaction Status Date / Time doxycycline Allergy Unknown hives Verified 05/09/21 07:14 metronidazole Allergy Unknown hives Verified 05/09/21 07:14 buspirone [From BuSpar] AdvReac Intermediate elevated BP Verified 05/09/21 07:14 cetirizine [From Zyrtec] AdvReac Other Verified 05/09/21 07:14 diphenhydramine AdvReac Other Verified 05/09/21 07:14 [From Benadryl] metoprolol AdvReac Other Verified 05/09/21 07:14 Home Medications Medication Instructions Recorded Confirmed Type fluticasone propionate 50 1 spray NASAL DAILY 04/06/19 05/09/21 History mcg/actuation nasal spray,suspension tretinoin 0.025 % topical cream 1 applic TOPICAL .qd #45 gm 01/18/20 05/09/21 Rx Ip6 2 cap PO DAILY 03/21/20 05/09/21 History Probiotic Colon Care 1 cap PO DAILY 03/21/20 05/09/21 History ascorbic acid (vitamin C) 500 mg PO DAILY 03/21/20 05/09/21 History cholecalciferol (vitamin D3) 25 mcg PO DAILY 03/21/20 05/09/21 History [Vitamin D3] coQ10 (ubiquinol) 200 mg PO DAILY 03/21/20 05/09/21 History lisinopril 5 mg tablet 5 mg PO BID #180 tablet 10/04/20 05/09/21 Rx diltiazem HCl 60 mg 60 mg PO BID #180 cap 12/14/20 05/09/21 Rx capsule,extended release 12 hr magnesium 100 mg PO DAILY 02/26/21 05/09/21 History pantoprazole 40 mg tablet,delayed 40 mg PO QAM #90 tablet 03/16/21 05/09/21 Rx release alprazolam 0.25 mg PO HS 04/19/21 05/09/21 History aspirin [Enteric Coated Aspirin] 162 mg PO DAILY 04/19/21 05/09/21 History pravastatin 20 mg PO Q48H 04/19/21 05/09/21 History aluminum-magnesium hydroxide 5 ml PO TID PRN 05/09/21 05/09/21 History [Mylanta] Patient hx anesthesia problems: none Family hx anesthesia problems: none Results Review: All pre-operative results and documents have been reviewed as part of the pre-operative evaluation. [facility] Past Medical History Medical History Atrial premature beats Colon cancer screening De Quervain's disease (radial styloid tenosynovitis) Essential hypertension MURTAZA (generalized anxiety disorder) Gastritis and duodenitis Resulting in GI bleed 2017 GERD (gastroesophageal reflux disease) Mitral valve prolapse PAF (paroxysmal atrial fibrillation) PVC (premature ventricular contraction) Tobacco consumption Trigeminal neuralgia of right side of face Surgical History Surgical History H/O colonoscopy with polypectomy (~03/2020) repeat in 2024 History of oophorectomy, unilateral Resection of ovarian cyst Family History Family History Father Hypertension Acute myocardial infarction, Onset Age: 75 Hyperlipidemia Sibling Schizophrenia Brother Mother , At age 82 after falling on stairs. Hypertension Social History Social History (Updated 04/06/21 @ 10:01 by Sangeeta Duenas) Social History: She lives with her of 10 years. 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 She denies any alcohol or illicit substance use. She smoked as much as a half a pack of cigarettes per day time she has teenager into the age of 56. She still smokes in times of stress. Primary care physician: Dr. Aubrie Rostovtseva Code status: Full code Surrogate decision maker: Smoking pac
[2021-05-09] MEDS: BENZOCAINE (*SP) 60 ML SPRAY CAN (HURRICAINE) 1 SPRAY MUCOUS MEM (08:28)
[2021-05-09 08:38] VITALS: BP 113/61; PULSE 56; RESP 16; O2SAT 100
--- NOTE | 2021-05-09 08:39 | W.PM.PROC2 ---
Procedure Note - Detailed Date of Procedure 05/09/21 Pre-op Diagnosis internal hemorrhoidsd Post-op Diagnosis same Procedure Performed IRC (infrared coagulation) Surgeon Bayron Foster MD Indications rectal bleeding Findings grade II internal hemorrhoids Description of Procedure rectal exam showed small skin tags, no fissure. Then introduced anoscope and noted grade II internal hemorrhoids at 3 o'clock position, then advanced IRC probe and hemorrhoids treated x5 (1.5 seconds each time). Complications No immediate complications
--- NOTE | 2021-05-09 08:40 | SUR.OPER ---
EGD start at 0830 and ended at 0833. IRC start at 0833 and end at 0834
[2021-05-09 08:48] VITALS: BP 115/64; PULSE 54; RESP 18; O2SAT 100
[2021-05-09 08:58] VITALS: BP 129/63; PULSE 56; RESP 20; O2SAT 100
== END 2021-05-09 09:24 | disposition home or self-care (01) ==
PROVIDERS: PCP Family Medicine; Visit Provider Internal Medicine Gastroenterology
PROC: 0DJ08ZZ Inspection of Upper Intestinal Tract, Via Natural or Artificial Opening Endoscopic (ICD-10-PCS; CPT 43235; principal; 2021-05-09 08:30)
PROC: (CPT 46930; 2021-05-09 08:30)
DX: K21.9 Gastro-esophageal reflux disease without esophagitis (principal); R14.0 Abdominal distension (gaseous); K64.1 Second degree hemorrhoids; K29.60 Other gastritis without bleeding; K64.4 Residual hemorrhoidal skin tags; R25.2 Cramp and spasm; K29.80 Duodenitis without bleeding; M65.4 Radial styloid tenosynovitis [de Quervain]; F41.1 Generalized anxiety disorder; I34.1 Nonrheumatic mitral (valve) prolapse; I48.0 Paroxysmal atrial fibrillation; I49.3 Ventricular premature depolarization; G50.0 Trigeminal neuralgia; Z87.891 Personal history of nicotine dependence; Z79.82 Long term (current) use of aspirin
CPT/HCPCS: 43239; 46930; 88305; J2704; J7120

== ENCOUNTER 2021-07-03 08:09 | Outpatient (CLI) | payer OTHER, SELFPAY ==
--- NOTE | ~2021-07-03 | US_ITS ---
EXAMINATION: US carotid duplex BI DATE: 07/03/2021 08:44 INDICATION: Right carotid bruit TECHNIQUE: Grayscale, color Doppler, and pulsed Doppler images of the cervical carotid arteries were obtained. The degree of vessel stenosis is placed in one of the following categories: normal, <50%, 5 0-69%, >=70% but less than near-occlusion, near-occlusion, or total occlusion. Note that percent sten osis relative to normal distal artery lumen diameter is indirectly measured from velocity measurement s as described by Chencho, et al. Radiology 2003; 229:340-346. Notes: Normal: Peak systolic velocity <125 centimeters/sec and no plaque <50%. Peak systolic velocity <125 ( EDV <40; ICA/CCA PSV ratio <2.0; used these factors only a tandem lesions or low cardiac output or co ntralateral disease) 50-69 %: PSV 125-230 (EDV 40-100; ratio 2-4) >= 70% but less than near occlusion: PSV greater than 230 (EDV > 100; ratio> 4.0) Near Occlusion: PSV that is variable; markedly narrowed lumen Occlusion: Absent flow on color/spectral Doppler and no lumen on [place] scale. COMPARISON: None. FINDINGS: RIGHT: The right common carotid artery (CCA) peak systolic velocity (PSV) is 116 cm/s. The right internal ca rotid artery (ICA) PSV is 96 cm/s. The right ICA end-diastolic velocity (EDV) is 36 cm/s. The right I CA/CCA PSV ratio is 0.83. The external carotid artery (ECA) PSV is 98 cm/s. There is antegrade flow i n the right vertebral artery. LEFT: The left CCA PSV is 123 cm/s. The left ICA PSV is 94 cm/s. The left ICA EDV is 36 cm/s. The left ICA/ CCA PSV ratio is 0.76. The ECA PSV is 91 cm/s. There is antegrade flow in the left vertebral artery. IMPRESSION: 1. Less than 50% stenosis in the right internal carotid artery by sonographic criteria. 2. Less than 50% stenosis in the left internal carotid artery by sonographic criteria. Reviewed, dictated and finalized at location A. FIC TECHNICIAN IMPRESSION: 1. Less than 50% stenosis in the right internal carotid artery by sonographic ming toribio. 2. Less than 50% stenosis in the left internal carotid artery by sonographic edison weiss.
== END 2021-07-03 08:10 | disposition home or self-care (01) ==
LOC: ANHIMG 08:11
PROVIDERS: PCP Family Medicine; Visit Provider Internal Medicine Cardiovascular Disease
DX: R09.89 Other specified symptoms and signs involving the circulatory and respiratory systems (principal); I65.23 Occlusion and stenosis of bilateral carotid arteries
CPT/HCPCS: 93880

== ENCOUNTER 2021-10-20 13:47 | Outpatient (CLI) | payer OTHER, SELFPAY ==
--- NOTE | ~2021-10-20 | CT_ITS ---
EXAMINATION: CT brain wo con DATE: 10/20/2021 14:11 INDICATION: Dizziness. Tinnitus. TECHNIQUE: Computed tomography (CT) of the head was performed without intravenous contrast. The mA wa s adjusted according to patient size. Iterative reconstruction technique was employed. The dose-lengt h product was 605.33 mGy-cm. COMPARISON: Head CT 05/21/2005 FINDINGS: There are scattered areas of low attenuation in the cerebral white matter. There is no intr acranial hemorrhage, acute infarction, or abnormal intracranial mass lesion. The ventricles are kranthi l in size. The paranasal sinuses are clear. The mastoid air cells are normal. The orbits are normal. IMPRESSION: 1. Moderate nonspecific cerebral white matter disease, which likely represents chronic small vessel i schemic disease. Reviewed, dictated and finalized at location B. IMPRESSION: 1. Moderate nonspecific cerebral white matter disease, which likely represents chronic small vessel ischemic disease.
== END 2021-10-20 13:48 | disposition home or self-care (01) ==
LOC: ANHIMG 14:00
PROVIDERS: PCP Family Medicine; Visit Provider Nurse Practitioner Gerontology
DX: R42 Dizziness and giddiness (principal); R90.82 White matter disease, unspecified
CPT/HCPCS: 70450

== ENCOUNTER 2021-12-09 08:51 | Outpatient (CLI) | payer OTHER, SELFPAY ==
--- NOTE | ~2021-12-09 | DEXA_ITS ---
Bone Density Report Name: LUIS FELIPE PANTOJA Age: 61 Sex: Female Ethnicity: White Date of : 1960 Indication: postmenopausal; screening for osteoporosis; height loss; Referring Provider: JIMI GAN Study: Bone densitometry was performed. Exam Date: December 09, 2021 Accession number: [id number] Bone Density: Region BMD T-score Z-score Classification AP Spine(L1-L4) 0.816 -2.1 -0.7 Osteopenia Femoral Neck (Left) 0.687 -1.5 -0.2 Osteopenia Total Hip (Left) 0.839 -0.8 0.1 Normal Femoral Neck (Right) 0.709 -1.3 0.0 Osteopenia Total Hip (Right) 0.789 -1.3 -0.3 Osteopenia Total Hip Mean 0.814 -1.1 -0.1 Osteopenia World Health Organization criteria for BMD impression classify patients as: Normal (T-score at or above -1.0), Osteopenia (T-score between -1.0 and -2.5), or Osteoporosis (T-score at or below -2.5). 10-year Fracture Risk(1): Major Osteoporotic Fracture 7.8% Hip Fracture 0.6% Reported Risk Factors: [place] (), Neck BMD=0.687, BMI=24.1 (1) FRAX(R) Version 3.08. Fracture probability calculated for an untreated patient. Fracture probability may be lower if the patient has received treatment. Clinical Information Provided by Patient: Has used the following medications: Vitamin D Patient maximum height was 68 Menopause Age: 51 Onset of menses at age 15 Number of children 0 Impression: The patient has low bone mass, based on the Total Spine T-score. The patient has an estimated ten-year risk of hip fracture of 0.6% and an estimated ten-year risk of major fracture of 7.8%, based on the WHO FRAX algorithm. Discussion: BONE DENSITY IS LOW AT ONE OR MORE SKELETAL SITES. This patient's lowest T-score is low at one or more skeletal sites. It meets the World Health Organization's (WHO) criteria for ?low bone mass? (T-score between -1.0 and -2.5). The patient's 10-year risk of fracture as calculated by FRAX is less than the threshold where pharmacological therapy is recommended by the National Osteoporosis Foundation (NOF). However, all treatment decisions require clinical judgment and consideration of individual patient factors, including patient preferences, comorbidities, previous drug use, risk factors not captured in the FRAX model (e.g., frailty, falls, vitamin D deficiency, increased bone turnover, interval significant decline in bone density) and possible under or overestimation of fracture risk by FRAX. The patient should follow a healthful lifestyle (good nutrition with adequate calcium and vitamin D, and appropriate weight-bearing exercise). Follow-Up: Consider repeating this study in 2 to 3 years to reassess this patient's status, or sooner if there is some new clinical indication. Reported by: [facility] on 12/09/2021 9:19:00 AM.
--- NOTE | ~2021-12-09 | MM_ITS ---
EXAMINATION: MM screening [facility] BI w [place] HISTORY: Screening mammogram TECHNIQUE: Craniocaudal and mediolateral oblique 3-D tomosynthesis images were obtained and synthetic 2-D images were generated. CAD analysis was submitted and interpreted. COMPARISON: 06/23/2020, 06/04/2019 BREAST PARENCHYMAL COMPOSITION: There are scattered areas of fibroglandular density. FINDINGS: There is no suspicious mass, calcification, or architectural distortion to suggest malignan cy in either breast. There has been no suspicious interval change. IMPRESSION: 1. No mammographic evidence of malignancy. 2. Recommend routine screening mammography in one year. BI-RADS Category 1: Negative Reviewed, dictated and finalized at location A.
== END 2021-12-09 08:52 | disposition home or self-care (01) ==
LOC: ANHIMG 08:52
PROVIDERS: PCP Family Medicine; Visit Provider Family Medicine
DX: Z12.31 Encounter for screening mammogram for malignant neoplasm of breast (principal); Z78.0 Asymptomatic menopausal state; M85.89 Other specified disorders of bone density and structure, multiple sites
CPT/HCPCS: 77063; 77067; 77080

== ENCOUNTER 2022-02-11 10:04 | Emergency (ER) | payer OTHER, SELFPAY ==
[2022-02-11 10:13] VITALS: BP 131/80; PULSE 69; RESP 18; TEMP 36.7; O2SAT 100
[2022-02-11 10:22] VITALS: BP 131/80; PULSE 69; RESP 18; TEMP 36.7; O2SAT 100
--- NOTE | 2022-02-11 10:29 | ED.SKABFB ---
HPI - Skin/Abscess/Foreign Bdy General Chief complaint: Skin/Abscess/Foreign Body Stated complaint: Rash Time Seen by Provider: 02/11/22 10:07 Source: patient Mode of arrival: ambulatory Limitations: no limitations History of Present Illness HPI narrative: 61-year-old female presents to [facility] with complaints of poison prince rash diffusely for the past 2 days. Patient reports that the symptoms started after she was working outside. Patient has been taking cdqs-xgz-jiivges Benadryl and applying zzpy-zje-zssecas ointments with little relief. Patient denies shortness of breath, wheezing, trouble swallowing or difficulty breathing. Patient reports that she is taking steroids in the past with no difficulties. MD complaint: rash Onset (ago): day(s) (2) Location: generalized Quality: pruritic Relieving factors: cold therapy Associated symptoms: denies other symptoms Treatments prior to arrival: OTC topical medication and Benadryl Related Data Home Medications Medication Instructions Recorded Confirmed aspirin 81 mg tablet,delayed 81 mg PO DAILY 04/19/21 02/11/22 release (Enteric Coated Aspirin) diltiazem HCl 60 mg 60 mg PO BID 10/11/21 02/11/22 capsule,extended release 12 hr rivaroxaban 20 mg tablet (Xarelto) 20 mg PO DAILY 10/11/21 02/11/22 alprazolam 0.25 mg tablet 0.25 mg PO HS PRN Anxiety 02/11/22 02/11/22 Allergies Allergy/AdvReac Type Severity Reaction Status Date / Time buspirone [From BuSpar] AdvReac Intermediate elevated BP Verified 02/11/22 10:20 metoprolol AdvReac Intermediate Other Verified 02/11/22 10:20 cetirizine [From Zyrtec] AdvReac Mild Hives Verified 02/11/22 10:20 diphenhydramine AdvReac Mild Hives Verified 02/11/22 10:20 [From Benadryl] doxycycline AdvReac Mild hives Verified 02/11/22 10:20 metronidazole AdvReac Mild hives Verified 02/11/22 10:20 Review of Systems Constitutional: Constitutional: Denies chills, Denies fatigue, Denies fever(s) and Denies weakness ENT: Denies vertigo and Denies dizziness Cardiovascular: Cardiovascular: Denies chest pain, Denies rapid heart rate, Denies radiating jaw, neck or arm pain and Denies slow heart rate Respiratory: Respiratory: Denies cough, Denies dyspnea and Denies wheezing Gastrointestinal: Gastrointestinal: Denies abdominal pain, Denies diarrhea, Denies nausea and Denies vomiting Integumentary/Breasts: Skin/Breast: Reports rash Neurologic: Denies vertigo and Denies dizziness Allergic/Immunologic: Allergic/Immunologic: Denies lip swelling, Denies throat swelling, Denies tongue swelling and Denies wheezing PMFSH Past Medical History Medical History Atrial premature beats Colon cancer screening De Quervain's disease (radial styloid tenosynovitis) Essential hypertension MURTAZA (generalized anxiety disorder) Gastritis and duodenitis Resulting in GI bleed 2017 GERD (gastroesophageal reflux disease) Hemorrhoid Mitral valve prolapse PAF (paroxysmal atrial fibrillation) PVC (premature ventricular contraction) Tobacco consumption Trigeminal neuralgia of right side of face Surgical History Surgical History H/O colonoscopy with polypectomy (~03/2020) repeat in 2024 History of oophorectomy, unilateral Resection of ovarian cyst Family History Family History Father Hypertension Acute myocardial infarction, Onset Age: 75 Hyperlipidemia Sibling Schizophrenia Brother Mother , At age 82 after falling on stairs. Hypertension Social History Social History Social History: She lives with her of 10 years. 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 She denies any alcohol or illicit substance use. She smoked as much as a half a pack of cigarettes per day time she has teenager into
[2022-02-11] MEDS: methylPREDNISolone SOD SUCC 125 MG VIAL IM (10:45)
== END 2022-02-11 10:50 | disposition home or self-care (01) ==
PROVIDERS: Emergency Provider Nurse Practitioner Family; PCP Family Medicine
DX: L23.7 Allergic contact dermatitis due to plants, except food (principal); Z87.891 Personal history of nicotine dependence; I10 Essential (primary) hypertension; K21.9 Gastro-esophageal reflux disease without esophagitis; I34.1 Nonrheumatic mitral (valve) prolapse; I48.0 Paroxysmal atrial fibrillation
CPT/HCPCS: 96372; 99213; G0463; J2930

== ENCOUNTER 2022-02-21 21:34 | Emergency (ER) | payer OTHER, SELFPAY ==
[2022-02-21] VITALS (10 sets, daily range): BP systolic 115–194; BP diastolic 90–102; PULSE 103–158; RESP 11–21; TEMP 36.4; O2SAT 97–100
--- NOTE | ~2022-02-21 | XR_ITS ---
EXAMINATION: XR chest 1V portable Exam Date/Time: 02/21/2022 22:10 CDT HISTORY: palpitations; hx of HTN, SVT Comparison: 03/14/2021. RESULT: Lines, tubes, and devices: None. Lungs and pleura: Clear. Cardiomediastinal silhouette: Stable. Other: No acute osseous or upper abdominal finding. IMPRESSION: No acute cardiopulmonary process. Reviewed, dictated and finalized at location K.
--- NOTE | 2022-02-21 21:46 | ECG_ITS ---
Measurements Intervals [place] Rate: 151 P: AR: 0 QRS: 55 QRSD: 92 T: -47 QT: 207 QTc: 328 Interpretive Statements ATRIAL FIBRILLATION WITH RAPID VENTRICULAR RESPONSE INCOMPLETE RIGHT BUNDLE BRANCH BLOCK [90+ ms QRS DURATION, TERMINAL R IN V1/V2, 40+ ms S IN I/aVL/V4/V5/V6] NONSPECIFIC ST & T-WAVE ABNORMALITY ABNORMAL ECG COMPARED TO ECG 03/14/2021 18:41:17 ATRIAL FIBRILLATION NOW PRESENT T-WAVE ABNORMALITY NOW PRESENT Electronically Signed On 02-22-2022 9:32:35 CDT by Eddie Holman M.D.
--- NOTE | 2022-02-21 21:57 | ED.ARRPALP ---
HPI - Arrhythmia/Palpitations General Chief Complaint: Arrhythmia/Palpitations Stated Complaint: heart racing Time Seen by Provider: 02/21/22 21:51 History of Present Illness HPI narrative: This is a 61-year-old female with past medical history of A. fib on diltiazem, who presents the emergency department with palpitations. She states she was lying down approximately an hour after taking gabapentin for recent outbreak of shingles, when she felt palpitations. She states she is usually able to break these with cough but was unable to. She complains of small amount of pressure-like chest pain, rated 2 out of 10 beginning approximately 30 minutes ago. She states she was recently started on gabapentin, Valtrex and prednisone. She has no other concerns. She states she took her diltiazem as recommended this evening. Related Data Home Medications Medication Instructions Recorded Confirmed aspirin 81 mg tablet,delayed 81 mg PO DAILY 04/19/21 02/21/22 release (Enteric Coated Aspirin) diltiazem HCl 60 mg 60 mg PO BID 10/11/21 02/21/22 capsule,extended release 12 hr rivaroxaban 20 mg tablet (Xarelto) 20 mg PO DAILY 10/11/21 02/21/22 alprazolam 0.25 mg tablet 0.25 mg PO HS PRN Anxiety 02/11/22 02/21/22 Allergies Allergy/AdvReac Type Severity Reaction Status Date / Time buspirone [From BuSpar] AdvReac Intermediate elevated BP Verified 02/21/22 08:28 metoprolol AdvReac Intermediate Other Verified 02/21/22 08:28 cetirizine [From Zyrtec] AdvReac Mild Hives Verified 02/21/22 08:28 diphenhydramine AdvReac Mild Hives Verified 02/21/22 08:28 [From Benadryl] doxycycline AdvReac Mild hives Verified 02/21/22 08:28 metronidazole AdvReac Mild hives Verified 02/21/22 08:28 Review of Systems Review of Systems: CONSTITUTIONAL: Denies fever, chills, or sweats. EYES: Denies visual changes, redness, or discharge. ENT: Denies rhinorrhea, congestion, sore throat, or otalgia. CARDIOVASCULAR: Mild chest pressure, palpitations denies edema. RESPIRATORY: Denies cough or dyspnea. GASTROINTESTINAL: Denies abdominal pain, nausea, vomiting, or diarrhea. GENITOURINARY: Denies dysuria or hematuria. SKIN: Recent shingles outbreak and poison prince infection MUSCULOSKELETAL: Denies back pain, joint pain, or myalgia. NEUROLOGIC: Denies headache, numbness, dizziness, or weakness. PSYCHIATRIC: Denies anxiety or depression. COUNTS INCLUDE 234 BEDS AT THE [facility] Past Medical History Medical History Atrial premature beats Colon cancer screening De Quervain's disease (radial styloid tenosynovitis) Essential hypertension MURTAZA (generalized anxiety disorder) Gastritis and duodenitis Resulting in GI bleed 2017 GERD (gastroesophageal reflux disease) Hemorrhoid Mitral valve prolapse PAF (paroxysmal atrial fibrillation) PVC (premature ventricular contraction) Tobacco consumption Trigeminal neuralgia of right side of face Surgical History Surgical History H/O colonoscopy with polypectomy (~03/2020) repeat in 2024 History of oophorectomy, unilateral Resection of ovarian cyst Family History Family History Father Hypertension Acute myocardial infarction, Onset Age: 75 Hyperlipidemia Sibling Schizophrenia Brother Mother , At age 82 after falling on stairs. Hypertension Social History Social History Social History: She lives with her of 10 years. 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 She denies any alcohol or illicit substance use. She smoked as much as a half a pack of cigarettes per day time she has teenager into the age of 56. She still smokes in times of stress. Primary care physician: Dr. Aubrie Pederson Code status: Full code Surrogate decision maker: Smoking packs per day: 0.25 S
[2022-02-21] MEDS: dilTIAZem HCl INJ 25 MG/5 ML VIAL 20 MG IV PUSH (22:04)
[2022-02-21 22:10] LABS: Hematocrit 42.8 % (37.0-47.0); Hemoglobin 14.4 g/dL (12.0-15.0); Mean Corpuscular HGB Conc 33.6 g/dl (32-36); Mean Corpuscular Hemoglobin 30.8 pg (26-34); Mean Corpuscular Volume 91.6 fl (80-100); Platelet Count Result 409 k/mm3 (150-375); Red Blood Count 4.67 M/mm3 (4.2-5.4); Red Cell Distribution Width 13.2 % (11.5-14.5); White Blood Count 19.6 K/mm3 (4.5-10.0)
[2022-02-21 22:22] LABS: Alanine Aminotransferase 35 U/L (6-35); Alkaline Phosphatase 99 U/L (38-126); Anion Gap 10 mmol/L (8-16); Aspartate Amino Transferase 31 U/L (14-36); Bilirubin,Total 0.4 mg/dL (0.2-1.3); Blood Urea Nitrogen 20 mg/dL (7-17); Calcium 9.7 mg/dL (8.4-10.2); Carbon Dioxide 25 mmol/L (22-30); Chloride 103 mmol/L (98-107); Estimated CRCL calculation 51 ml/min; Estimated Glomerular Filt Rate 57; Glucose 126 mg/dL (65-110); INR 1.4; Lipase 197 U/L (23-300); Potassium 3.5 mmol/L (3.4-5.0); Prothrombin Time 16.4 Seconds (11.1-14.7); Sodium 138 mmol/L (137-145)
[2022-02-21] MEDS: dilTIAZem HCl INJ 25 MG/5 ML VIAL 10 MG IV PUSH (22:24)
[2022-02-21 22:37] LABS: Band Neutrophils Percent 3 % (0-6); Lymphocytes Absolute Manual 4.31 K/mm3 (1.1-4.5); Neutrophils Percent Manual 71 % (46-73); Plasma Cells 3; Platelet Estimate Adequate (Adequate); Promyelocytes Percent 1 %; Total Cells Counted 100
[2022-02-21 22:38] LABS: Hypersegmented Neutrophils Present; Poikilocytosis 1+ (NORMAL); Schistocytes None Seen (NORMAL); Spherocytes 1+ (NORMAL)
[2022-02-21 22:39] LABS: Atypical Lymphocytes Present; Hyperchromasia 1+ (NORMAL); Smudge Cells FEW
[2022-02-21 23:04] LABS: Troponin I < 0.012 ng/mL (0.000-0.034)
[2022-02-22] VITALS (15 sets, daily range): BP systolic 117–138; BP diastolic 81–97; PULSE 97–131; RESP 11–26; O2SAT 97–99
--- NOTE | 2022-02-22 02:23 | PC.NURSE ---
patient very anxious. states that she has xanax 0.25mg in her purse and is asking if she can take it. ok with Dr. Diamond.
[2022-02-22 02:51] LABS: Troponin I 0.033 ng/mL (0.000-0.034)
== END 2022-02-22 03:10 | disposition home or self-care (01) ==
PROVIDERS: Emergency Provider Preventive Medicine Aerospace Medicine; PCP Family Medicine
DX: I48.0 Paroxysmal atrial fibrillation (principal); R00.2 Palpitations; I10 Essential (primary) hypertension; I34.1 Nonrheumatic mitral (valve) prolapse; K21.9 Gastro-esophageal reflux disease without esophagitis; F41.1 Generalized anxiety disorder; Z87.891 Personal history of nicotine dependence; Z79.82 Long term (current) use of aspirin; Z79.01 Long term (current) use of anticoagulants
CPT/HCPCS: 36415; 71045; 80053; 83690; 84484; 85025; 85610; 85730; 93005; 96374; 99284; A9270

== ENCOUNTER 2022-05-02 10:03 | Outpatient (CLI) | payer OTHER, SELFPAY ==
--- NOTE | ~2022-05-02 | XR_ITS ---
Left elbow Technique: AP, oblique, and lateral views were obtained. Clinical History: Pain Findings: No acute fracture or dislocation is seen. Osseous alignment is anatomic. Joint spaces are p reserved. There is no displacement of the fat pads, and soft tissues are unremarkable. Impression: Unremarkable radiographs. Reviewed, dictated and finalized at location . HT LOSS COUNSELOR Impression: Unremarkable radiographs.
== END 2022-05-02 10:04 | disposition home or self-care (01) ==
PROVIDERS: PCP Family Medicine; Visit Provider Nurse Practitioner Gerontology
DX: M25.522 Pain in left elbow (principal)
CPT/HCPCS: 73080

== ENCOUNTER 2022-10-23 01:10 | Day surgery (SDC) | payer OTHER, SELFPAY ==
[2022-10-12 11:00] VITALS: BMI 24.1
[2022-10-23 08:20] VITALS: BP 126/83; PULSE 61; RESP 18; TEMP 36.4; O2SAT 99
[2022-10-23] MEDS: LACTATED RINGERS 1,000 ML 150 ML IV CONT (08:23)
--- NOTE | 2022-10-23 08:58 | WPDANESEPPF ---
Anes - Initial Pre Proc Eval Procedure: Operation Date: 10/23/22 09:30 Proposed Procedures p Esophagogastroduodenoscopy - Bayron Foster MD Date/Time: 10/23/22 08:58 Surgeon: Bayron Foster MD Pre Op Diagnosis: GERD Patient Data Age: 62 Gender: F Height: 1.7 m Weight: 70 kg Last Vital Signs Temp 97.6 F 10/23/22 08:20 Pulse 61 10/23/22 08:20 Resp 18 10/23/22 08:20 BP 126/83 10/23/22 08:20 Pulse Ox 99 10/23/22 08:20 O2 Del Method Room Air 10/23/22 08:20 Allergies Allergy/AdvReac Type Severity Reaction Status Date / Time buspirone [From BuSpar] AdvReac Intermediate elevated BP Verified 10/23/22 08:18 metoprolol AdvReac Intermediate Other Verified 10/23/22 08:18 doxycycline AdvReac Mild hives Verified 10/23/22 08:18 metronidazole AdvReac Mild hives Verified 10/23/22 08:18 Home Medications Medication Instructions Recorded Confirmed Type aspirin 81 mg tablet,delayed 81 mg PO DAILY 04/19/21 10/23/22 History release (Enteric Coated Aspirin) rivaroxaban 20 mg tablet (Xarelto) 20 mg PO DAILY 10/11/21 10/12/22 History triamcinolone acetonide 0.1 % 1 applic topical BID 7 days #30 02/11/22 10/23/22 Rx topical cream grams fluticasone propionate 50 See Rx Instructions .Route 06/04/22 10/23/22 Rx mcg/actuation nasal .COMPLEX #16 grams spray,suspension rosuvastatin 10 mg tablet See Rx Instructions .Route 06/15/22 10/23/22 Rx .COMPLEX #90 tabs alprazolam 0.25 mg tablet 0.25 mg PO HS PRN Anxiety #90 tabs 08/14/22 10/23/22 Rx escitalopram oxalate 5 mg tablet 5 mg PO DAILY #30 tabs 09/13/22 10/23/22 Rx pantoprazole 40 mg tablet,delayed See Rx Instructions .Route 09/14/22 10/23/22 Rx release .COMPLEX #90 tabs amoxicillin 875 mg-potassium 1 tablet PO BID #20 tabs 10/09/22 10/23/22 Rx clavulanate 125 mg tablet codeine 10 mg-guaifenesin 100 mg/5 5 ml PO Q4-6H PRN cough #237 mL 10/09/22 10/23/22 Rx mL oral liquid diltiazem HCl 60 mg 60 mg PO BID #180 caps 10/14/22 10/23/22 Rx capsule,extended release 12 hr lisinopril 5 mg tablet See Rx Instructions .Route 10/15/22 10/23/22 Rx .COMPLEX #90 tabs Patient hx anesthesia problems: none Family hx anesthesia problems: none Results Review: All pre-operative results and documents have been reviewed as part of the pre-operative evaluation. [facility] Past Medical History Medical History Acute bronchitis Acute maxillary sinusitis Acute right eye pain Acute right-sided low back pain with right-sided sciatica Acute upper respiratory infection Atrial fibrillation with RVR Atrial premature beats Breast mass, right Breast screening CAP (community acquired pneumonia) Colon cancer screening Contact allergic reaction De Quervain's disease (radial styloid tenosynovitis) Dermatofibroma of right calf Enlarged thyroid Essential hypertension MURTAZA (generalized anxiety disorder) Gastritis and duodenitis Resulting in GI bleed 2017 GERD (gastroesophageal reflux disease) Hemorrhoid Hip pain, left Low TSH level Mitral valve prolapse Mixed hyperlipidemia Neck pain Other seasonal allergic rhinitis PAF (paroxysmal atrial fibrillation) PAF (paroxysmal atrial fibrillation) Palpitations Panic attacks PVC (premature ventricular contraction) PVC (premature ventricular contraction) Right sided sciatica Seasonal affective disorder in remission Sore throat Stress reaction Tobacco consumption Tobacco use disorder Trigeminal nerve palsy Trigeminal neuralgia of right side of face Vaginitis and vulvovaginitis Vulval lesion Surgical History Surgical History H/O colonoscopy with polypectomy (~03/2020) repeat in 2024 History of oophorectomy, unilateral Resection of ovarian cyst Family History Family History Father Hypertension Acute myocardial infar
--- NOTE | 2022-10-23 09:07 | PM.HPGS ---
History of Present Illness History of Present Illness Consent: Risks, benefits, and alternatives have been discussed and questions answered. Patient agrees to proceed with procedure. Chief complaint: GERD Narrative: Veronica Allan is a 62 year old female with gerd, had breakthrough last month, now she is doing better. All this time has been on protonix, last EGD 1.5 year ago, no celiac, bx showed gastritis. Review of Systems Constitutional: Constitutional: Denies headache(s) and Denies weakness Eyes: Eyes: Denies blurry vision ENT: Reports Normal hearing present, Denies headache(s) and Denies neck pain Cardiovascular: Cardiovascular: Denies chest pain and Denies dyspnea Respiratory: Respiratory: Denies dyspnea Gastrointestinal: Gastrointestinal: Reports no additional gastrointestinal complaints Genitourinary: Genitourinary: Denies dysuria Musculoskeletal: Musculoskeletal: Denies neck pain Integumentary/Breasts: Skin/Breast: Denies dry skin Neurologic: Reports Normal hearing present, Denies headache(s) and Denies weakness Psychiatric: Psychiatric: Denies anxiety Endocrine: Endocrine: Denies change in body appearance Hematologic/Lymphatic: Hematologic/Lymphatic: Denies easy bleeding Allergic/Immunologic: Allergic/Immunologic: Denies urticaria PMFSH Past Medical History Medical History Acute bronchitis Acute maxillary sinusitis Acute right eye pain Acute right-sided low back pain with right-sided sciatica Acute upper respiratory infection Atrial fibrillation with RVR Atrial premature beats Breast mass, right Breast screening CAP (community acquired pneumonia) Colon cancer screening Contact allergic reaction De Quervain's disease (radial styloid tenosynovitis) Dermatofibroma of right calf Enlarged thyroid Essential hypertension MURTAZA (generalized anxiety disorder) Gastritis and duodenitis Resulting in GI bleed 2017 GERD (gastroesophageal reflux disease) Hemorrhoid Hip pain, left Low TSH level Mitral valve prolapse Mixed hyperlipidemia Neck pain Other seasonal allergic rhinitis PAF (paroxysmal atrial fibrillation) PAF (paroxysmal atrial fibrillation) Palpitations Panic attacks PVC (premature ventricular contraction) PVC (premature ventricular contraction) Right sided sciatica Seasonal affective disorder in remission Sore throat Stress reaction Tobacco consumption Tobacco use disorder Trigeminal nerve palsy Trigeminal neuralgia of right side of face Vaginitis and vulvovaginitis Vulval lesion Surgical History Surgical History H/O colonoscopy with polypectomy (~03/2020) repeat in 2024 History of oophorectomy, unilateral Resection of ovarian cyst Family History Family History Father Hypertension Acute myocardial infarction, Onset Age: 75 Hyperlipidemia Sibling Schizophrenia Brother Mother , At age 82 after falling on stairs. Hypertension Social History Social History Social History: She lives with her of 10 years. 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 She denies any alcohol or illicit substance use. She smoked as much as a half a pack of cigarettes per day time she has teenager into the age of 56. Primary care physician: Dr. Aubrie Pederson Code status: Full code Surrogate decision maker: Smoking packs per day: 0.25 Smoking cigarettes per day: 5.0 Years smoked: 30 Smoking pack-years: 7.50 Smoking status: Former smoker Tobacco type: cigarettes Second hand tobacco smoke exposure: No Smoking end date: 05/06/16 Alcohol intake: never Substance use: never Substance use type: does not use Lack of Transportation: No Lack of Food: Never True Current Housing: I Have Housing Mariya
[2022-10-23] MEDS: BENZOCAINE (*SP) 60 ML SPRAY CAN (HURRICAINE) 1 SPRAY MUCOUS MEM (09:12)
[2022-10-23 09:21] VITALS: BP 122/70; PULSE 56; RESP 22; O2SAT 98
[2022-10-23 09:31] VITALS: BP 124/69; PULSE 55; RESP 18; O2SAT 99
[2022-10-23 09:41] VITALS: BP 133/74; PULSE 52; RESP 16; O2SAT 99
== END 2022-10-23 09:56 | disposition home or self-care (01) ==
PROVIDERS: PCP Family Medicine; Visit Provider Internal Medicine Gastroenterology
PROC: 0DJ08ZZ Inspection of Upper Intestinal Tract, Via Natural or Artificial Opening Endoscopic (ICD-10-PCS; CPT 43235; principal; 2022-10-23 09:30)
DX: K21.9 Gastro-esophageal reflux disease without esophagitis (principal); K29.70 Gastritis, unspecified, without bleeding; I48.0 Paroxysmal atrial fibrillation; I10 Essential (primary) hypertension; F41.1 Generalized anxiety disorder; I34.1 Nonrheumatic mitral (valve) prolapse; E78.2 Mixed hyperlipidemia; I49.3 Ventricular premature depolarization; Z79.82 Long term (current) use of aspirin; Z79.01 Long term (current) use of anticoagulants; Z87.891 Personal history of nicotine dependence
CPT/HCPCS: 43239; 88305; J2704; J7120

== ENCOUNTER 2023-02-21 07:44 | Outpatient (CLI) | payer OTHER, SELFPAY ==
--- NOTE | ~2023-02-21 | MM_ITS ---
EXAMINATION: MM screening fran BI w angelita HISTORY: Screening TECHNIQUE: Craniocaudal and mediolateral oblique 3-D tomosynthesis images were obtained and synthetic 2-D images were generated. CAD analysis was submitted and interpreted. COMPARISON: Comparison to multiple prior studies sequentially, with oldest reviewed study dated 11/21. BREAST PARENCHYMAL COMPOSITION: There are scattered areas of fibroglandular density. FINDINGS: There is no evidence of suspicious mass, calcification, or architectural distortion to sugg est malignancy in either breast. There has been no suspicious interval change. IMPRESSION: 1. No mammographic evidence of malignancy. 2. Recommend routine screening mammography in one year. BI-RADS Category 1: Negative Reviewed, dictated and finalized at location A.
== END 2023-02-21 07:45 | disposition home or self-care (01) ==
PROVIDERS: PCP Family Medicine; Visit Provider Family Medicine
DX: Z12.31 Encounter for screening mammogram for malignant neoplasm of breast (principal)
CPT/HCPCS: 77063; 77067

== ENCOUNTER 2023-05-31 08:11 | Outpatient (CLI) | payer OTHER, SELFPAY ==
--- NOTE | 2023-05-31 11:49 | P.PCNPFT_ITS ---
PFT Procedure Performed PFT Procedure Performed Plethysmography (Lung Vol) Diffusing Cap (DLCO) Flow Vol Loop Spirometry w/o Bronchodil PFT Interpretation Lung volumes were measured with the body plethysmography method. Lung volumes are unremarkable. Spirometry showed diminished expiratory flow rates and a d iminished FEV1 to FVC ratio 63%, consistent with obstructive airway disease. No post bronchodilator study conducted. Lung diffusion capacity is moderately reduced at 55% predicted. The flow volume loop is consistent with obstructive airway disease. Impression: Mild obstructive airway disease. Moderately reduced lung diffusion capacity.
== END 2023-05-31 08:12 | disposition home or self-care (01) ==
PROVIDERS: PCP Family Medicine; Visit Provider Physician Assistant
DX: J44.9 Chronic obstructive pulmonary disease, unspecified (principal); R06.02 Shortness of breath; R49.0 Dysphonia
CPT/HCPCS: 94375; 94726; 94729

== ENCOUNTER 2023-11-27 09:43 | Emergency (ER) | payer OTHER, SELFPAY ==
[2023-11-27 10:00] VITALS: BP 129/76; PULSE 60; RESP 16; TEMP 36.2; O2SAT 98
--- NOTE | 2023-11-27 10:01 | ED.EAR ---
HPI - Ear Problem General Chief complaint: Ear Stated complaint: ear pain Time Seen by Provider: 11/27/23 10:01 Source: patient, RN notes reviewed and old records reviewed Mode of arrival: ambulatory Limitations: no limitations History of Present Illness HPI Narrative: Patient presents with complaints of left ear pain. She reports that this complaint is fairly chronic. She does have an appointment with an ENT specialist, but this is not until January of 2024. She was treated for left ear pain about 1 month ago, states that she felt good during treatment, but symptoms have begun again. She reports current bout began about 2 days ago. Patient takes Flonase, montelukast, Benadryl daily for her ENT issues. She reports that she at 1 point had vertigo for 7 months. She denies any vertigo symptoms right now. She does complain of some postnasal drip. Denies fever, chills, cough. Voices no other concerns or complaints today Related Data Home Medications Medication Instructions Recorded Confirmed ipratropium bromide 21 mcg (0.03 intranasal 11/27/23 %) nasal spray Allergies Allergy/AdvReac Type Severity Reaction Status Date / Time doxycycline Allergy Mild hives Verified 11/27/23 10:02 metronidazole Allergy Mild hives Verified 11/27/23 10:02 buspirone [From BuSpar] AdvReac Intermediate elevated BP Verified 11/18/23 09:50 metoprolol AdvReac Intermediate Other Verified 11/18/23 09:50 azithromycin AdvReac Palpitation Verified 11/27/23 10:02 s Review of Systems Review of Systems: All systems reviewed & are unremarkable except as noted in HPI and below Constitutional: Constitutional: Reports no additional constitutional complaints ENT: Reports system reviewed and no additional complaints, except as documented and Reports as per HPI Cardiovascular: Cardiovascular: Reports no additional cardiovascular complaints Respiratory: Respiratory: Reports as per HPI and Reports no additional respiratory complaints Gastrointestinal: Gastrointestinal: Reports no additional gastrointestinal complaints [facility] Past Medical History Medical History Acute bronchitis Acute maxillary sinusitis Acute right eye pain Acute right-sided low back pain with right-sided sciatica Acute upper respiratory infection Atrial fibrillation with RVR Atrial premature beats Breast mass, right Breast screening CAP (community acquired pneumonia) Colon cancer screening Contact allergic reaction De Quervain's disease (radial styloid tenosynovitis) Dermatofibroma of right calf Enlarged thyroid Essential hypertension MURTAZA (generalized anxiety disorder) Gastritis and duodenitis Resulting in GI bleed 2017 GERD (gastroesophageal reflux disease) Hemorrhoid Hip pain, left Low TSH level Mitral valve prolapse Mixed hyperlipidemia Neck pain Other seasonal allergic rhinitis PAF (paroxysmal atrial fibrillation) PAF (paroxysmal atrial fibrillation) Palpitations Panic attacks PVC (premature ventricular contraction) PVC (premature ventricular contraction) Right sided sciatica Seasonal affective disorder in remission Sore throat Stress reaction Tobacco consumption Tobacco use disorder Trigeminal nerve palsy Trigeminal neuralgia of right side of face Vaginitis and vulvovaginitis Vulval lesion Surgical History Surgical History H/O colonoscopy with polypectomy (~03/2020) repeat in 2024 History of oophorectomy, unilateral Resection of ovarian cyst Family History Family History Father Hypertension Acute myocardial infarction, Onset Age: 75 Hyperlipidemia Sibling Schizophrenia Brother Mother , At age 82 after falling on stairs. Hypertension Social History Social History Social History: She lives
[2023-11-27 10:05] VITALS: BP 129/76; PULSE 60; RESP 16; TEMP 36.2; O2SAT 98
== END 2023-11-27 10:48 | disposition home or self-care (01) ==
PROVIDERS: Emergency Provider Nurse Practitioner Family; PCP Family Medicine
DX: H65.02 Acute serous otitis media, left ear (principal); Z87.891 Personal history of nicotine dependence; I10 Essential (primary) hypertension; K21.9 Gastro-esophageal reflux disease without esophagitis; I34.1 Nonrheumatic mitral (valve) prolapse; E78.2 Mixed hyperlipidemia; I48.0 Paroxysmal atrial fibrillation
CPT/HCPCS: 99213; G0463

== ENCOUNTER 2024-02-28 08:18 | Outpatient (CLI) | payer OTHER, SELFPAY ==
--- NOTE | ~2024-02-28 | MM_ITS ---
EXAMINATION: MM screening fran BI w angelita HISTORY: Screening TECHNIQUE: Craniocaudal and mediolateral oblique 3-D tomosynthesis images were obtained and synthetic 2-D images were generated. CAD analysis was submitted and interpreted. COMPARISON: Comparison to multiple prior studies sequentially, with oldest reviewed study dated 04/06. BREAST PARENCHYMAL COMPOSITION: Not dense: There are scattered areas of fibroglandular density. FINDINGS: There is no evidence of suspicious mass, calcification, or architectural distortion to sugg est malignancy in either breast. There has been no suspicious interval change. IMPRESSION: 1. No mammographic evidence of malignancy. 2. Recommend routine screening mammography in one year. BI-RADS Category 1: Negative Reviewed, dictated and finalized at location B.
== END 2024-02-28 08:19 | disposition home or self-care (01) ==
LOC: ANHIMG 08:20
PROVIDERS: PCP Family Medicine; Visit Provider Family Medicine
DX: Z12.31 Encounter for screening mammogram for malignant neoplasm of breast (principal)
CPT/HCPCS: 77063; 77067

== ENCOUNTER 2024-03-23 08:17 | Outpatient (CLI) | payer OTHER, SELFPAY ==
--- NOTE | ~2024-03-23 | DEXA_ITS ---
Bone Density Report Name: LUIS FELIPE PANTOJA Age: 63 Sex: Female Ethnicity: White Date of : 1960 Indication: osteopenia; height loss; Referring Provider: GERRI ESTRADA Study: Bone densitometry was performed. Exam Date: March 23, 2024 Accession number: [id number] Bone Density: Region BMD T-score Z-score Classification AP Spine(L1-L4) 0.786 -2.4 -0.8 Osteopenia Femoral Neck (Left) 0.726 -1.1 0.3 Osteopenia Total Hip (Left) 0.832 -0.9 0.2 Normal Femoral Neck (Right) 0.672 -1.6 -0.2 Osteopenia Total Hip (Right) 0.811 -1.1 0.0 Osteopenia Total Hip Mean 0.822 -1.0 0.1 Normal World Health Organization criteria for BMD impression classify patients as: Normal (T-score at or above -1.0), Osteopenia (T-score between -1.0 and -2.5), or Osteoporosis (T-score at or below -2.5). 10-year Fracture Risk(1): Major Osteoporotic Fracture 9.0% Hip Fracture 0.9% Reported Risk Factors: [place] (), Neck BMD=0.672, BMI=24.9 (1) FRAX(R) Version 3.08. Fracture probability calculated for an untreated patient. Fracture probability may be lower if the patient has received treatment. Previous Exams: Region Exam Age BMD T-score BMD Change BMD Change Date g/cm2 vs Baseline vs Previous AP Spine (L1-L4) 03/23/2024 63 0.786 -2.4 -0.030 (-3.6%) -0.030 (-3.6%) 12/09/2021 61 0.816 -2.1 Total Hip(Left) 03/23/2024 63 0.832 -0.9 -0.007 (-0.8%) -0.007 (-0.8%) 12/09/2021 61 0.839 -0.8 Total Hip(Right) 03/23/2024 63 0.811 -1.1 0.022 (2.9%) 0.022 (2.9%) 12/09/2021 61 0.789 -1.3 *Denotes significance at 95% confidence level, LSC for AP Spine = 0.022 g/cm2, LSC for Total Hip = 0.027 g/cm2 Clinical Information Provided by Patient: Has used the following medications: Vitamin D, Calcium Patient maximum height was 68.0 Menopause Age: 51 Onset of menses at age 15 Number of children 0 Impression: The patient has low bone mass, based on the Total Spine T-score. The patient has an estimated ten-year risk of hip fracture of 0.9% and an estimated ten-year risk of major fracture of 9%, based on the WHO FRAX algorithm. The BMD for the AP Spine (L1-L4) decreased, changing by -3.6% since the last DXA exam. Discussion: BONE DENSITY IS LOW AT ONE OR MORE SKELETAL SITES. This patient's lowest T-score is low at one or more skeletal sites. It meets the World Health Organization's (WHO) criteria for ?low bone mass? (T-score between -1.0 and -2.5). The patient's 10-year risk of fracture as calculated by FRAX is less than the threshold where pharmacological therapy is recommended by the National Osteoporosis Foundation (NOF). However, all treatment decisions require clinical judgment and consideration of individual patient factors, including patient preferences, comorbidities, previous drug use, risk factors not captured in the FRAX model (e.g., frailty, falls, vitamin D deficiency, increased bone turnover, interval significant decline in bone density) and possible under or overestimation of fracture risk by FRAX. The patient should follow a healthful lifestyle (good nutrition with adequate calcium and vitamin D, and appropriate weight-bearing exercise). Follow-Up: Consider repeating this study in 2 years to reassess this patient's status, or sooner if there is some new clinical indication. Reported by: JAMES on 03/23/2024 8:49:00 AM. Reviewed, dictated and finalized at location A. [facility]
== END 2024-03-23 08:18 | disposition home or self-care (01) ==
LOC: ANHIMG 08:20
PROVIDERS: PCP Family Medicine; Visit Provider Student in an Organized Health Care Education/Training Program
DX: M85.89 Other specified disorders of bone density and structure, multiple sites (principal)
CPT/HCPCS: 77080

== ENCOUNTER 2024-05-19 10:48 | Outpatient (CLI) | payer OTHER, SELFPAY ==
--- NOTE | ~2024-05-19 | XR_ITS ---
XR foot RT 2V Ordering provider: Ekaterina Gonzalez PA-C History: . M79.671 - Pain in right foot, heel area pain, no injury . Comparison: None. FINDINGS: BONES: No acute fracture or dislocation. Calcaneal spur. JOINT SPACES: Narrowing of the proximal and distal interphalangeal joints. No tarsal coalition. SOFT TISSUES: Normal. IMPRESSION: No acute osseous abnormality of the right foot. Polyarticular osteoarthritic changes. Reviewed, dictated and finalized at location A. ROOM CLERK
--- NOTE | ~2024-05-19 | XR_ITS ---
XR foot LT 2V Ordering provider: Ekaterina Gonzalez PA-C History: . M79.671 - Pain in right foot, heel area pain, no injury . Comparison: None. FINDINGS: BONES: No acute fracture or dislocation. Calcaneal spur. JOINT SPACES: Narrowing of the proximal and distal interphalangeal joints. No tarsal coalition. SOFT TISSUES: Normal. IMPRESSION: No acute osseous abnormality left foot. Polyarticular osteoarthritic changes. Reviewed, dictated and finalized at location A. NG CHANGER
== END 2024-05-19 10:49 | disposition home or self-care (01) ==
PROVIDERS: PCP Family Medicine; Visit Provider Physician Assistant
DX: M19.072 Primary osteoarthritis, left ankle and foot (principal); M19.071 Primary osteoarthritis, right ankle and foot
CPT/HCPCS: 73620

== ENCOUNTER 2024-08-02 08:06 | Emergency (ER) | payer OTHER, SELFPAY ==
--- OUTSIDE RECORDS SUMMARY | 2024-08-02 08:08 | XMS_ITS | Clinical Summary ---
Author Organization [facility] [address] Address [address] [place] [address] Care Team Providers Care Burn Table Operator Name Role Phone Aubrie Pederson MD Primary Care Provider Allergies Active Allergy Reactions Criticality Noted Date Comments Aspirin Stomach upset Low 02/21/2023 Caused gastritis Doxycycline Other (See comments) Medium Skin turned Purple Apixaban Vision changes Medium 02/21/2023 Metronidazole Hives Medium Skin turned Purple Medications lisinopril (PRINIVIL,ZESTR IL) 5 mg tablet Take 1 tablet (5 mg total) by mouth daily Active ALPRAZolam (XANAX) 0.25 mg tablet Take 1 tablet (0.25 mg total) by mouth nightly as needed for anxiety Active coenzyme Q10 200 mg capsule Take 1 capsule (200 mg total) by mouth daily Active LACTOBAC NO.41/BIFIDOBAC T NO.7 (PROBIOTIC-10 ORAL) Take 1 capsule by mouth daily Active magnesium citrate 125 mg capsule Take 1 capsule by mouth daily Active rosuvastatin (CRESTOR) 10 mg tablet Take 1 tablet (10 mg total) by mouth nightly 06/23/2021 Active folic acid (FOLVITE) 400 mcg tablet Take 1 tablet (400 mcg total) by mouth daily 10/23/2021 Active cyanocobalamin (Vitamin B-12) 500 mcg tablet Take 1 tablet (500 mcg total) by mouth daily 10/23/2021 Active calcium carbonate-vitam in D3 1,250 mg (500 mg elemental)-400 unit tablet Take 1 tablet by mouth daily 12/11/2021 Active dilTIAZem SR (CARDIZEM SR) 60 mg 12 hr capsule Take 1 capsule (60 mg total) by mouth 2 (two) times a day 180 capsule 1 03/22/2022 Active escitalopram (LEXAPRO) 5 mg tablet 09/14/2022 Active rivaroxaban (XARELTO) 20 mg tablet Take 1 tablet (20 mg total) by mouth daily with dinner Active omega 0-dqf-mma-fish oil 120-180-500 mg capsule Take 1 tablet/capsu le by mouth daily Active buPROPion SR (WELLBUTRIN SR) 100 mg 12 hr tablet Take 1 tablet (100 mg total) by mouth 2 (two) times a day 02/05/[address] (NexIUM) 40 mg capsule Take 1 capsule (40 mg total) by mouth 2 (two) times a day 02/08/2024 Active HYDROcodone-ethan taminophen (NORCO) 5-325 mg per tablet Take 1 tablet by mouth every 8 (eight) hours as needed 02/24/2024 Active ondansetron (ZOFRAN) 4 mg tablet Take 1 tablet (4 mg total) by mouth every 8 (eight) hours as needed 02/24/2024 Active triazolam (HALCION) 0.25 mg tablet Take 1 tablet (0.25 mg total) by mouth nightly as needed 02/24/2024 Active Active Problems Problem Noted Date Diagnosed Date HTN (hypertension), benign 03/01/2024 Current use of local intermodal truck driver anticoagulation 022 Abnormal stress echo 08/28/2021 Overview (08/28/2021): Added automatically from request for surgery [id number] Mitral valve disorder 06/12/2021 Dyslipidemia 06/12/2021 Other chest pain 06/12/2021 Gastroesophageal reflux disease 06/12/2021 PVC (premature ventricular contraction) 06/12/19 22 Assessment & Plan (12/19/2023 10:41 AM CDT): Symptomatic PVCs despite diltiazem, unable to increase dose due to bradycardia 3 day Holter to assess PVC burden Discussed elimination of triggers, current symptoms seen to be exacerbated by antihistamines, follows with ENT If high PVC burden, discussed options of antiarrhythmic medication or catheter ablation Right carotid bruit 06/12/2021 Atrial fibrillation 07/02/2017 Assessment & Plan (12/19/2023 10:44 AM CDT): Paroxysmal atrial fibrillation, 2 episodes in the past year, symptomatic with palpitations, self terminated after a couple hours Continue diltiazem and Xarelto for stroke risk reduction If AF burden increases, discussed options of catheter ablation or antiarrhythmic medications (dofetilide). Surgical History Surgery Date Site/Laterality Comments LAPAROSCOPY 05/06/2000 - 05/05/2001 Medical History Medical History Date Comments Atrial fibrillation (HCC) Acid reflux Skin cancer Hypertension Hyperlipidemia PVC's (premature ventricular contractions) Family History Medical History Relation Name Comments Coronary artery disease Brother Michael Heart disease Brother Michael CABG Hypertension Brother Michael Hyperlipidemia Father Hypertension Father Sudden Cardiac Father Hypertension Mother Atrial fibrillation Sister [place] Hypertension Sister [place] Relation Name Status Comments Brother Michael Alive Father (Age 68) Mother Alive Sister [place] Alive Social History Tobacco Use Types Packs/Day Years Used Date Smoking Tobacco: Former Cigarettes 0.4 35 1 - 02/04/2021 Passive Smoke Exposure: Past Smokeless Tobacco: Never Alcohol Use Standard Drinks/Week Comments No 0 (1 standard drink = 0.6 oz pur e alcohol) AUDIT-C Answer Date Recorded Q1: How often do you have a drink containing alc ohol? 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 Gender Identity Not on file Sexual Orientation Not on file Obstetrics History Last Filed Vital Signs Vital Sign Reading Time Taken Comments Blood Pressure 130/84 12/19/2023 10:00 AM CDT Pulse 56 02/26/2024 9:24 AM CDT Temperature 36.2 C (97.2 F) 02/26/2024 9:24 AM CDT Respiratory Rate 16 02/12/2023 8:16 AM CDT Oxygen Saturation 98% 02/26/2024 9:24 AM CDT Inhaled Oxygen Concentration - - Weight 72.8 kg (160 lb 9.6 oz) 02/26/2024 9:24 A M CDT Height 171.5 cm (5' 7.5 ) 02/26/2024 9:24 AM CDT Body Mass Index 24.78 02/26/2024 9:24 AM CDT Plan of Treatment Health Maintenance Due Date Last Done Comments Breast Cancer Screening-Mammogram 1961 Cervical Cancer Screening 1961 Colon Cancer Screening-Colonoscopy 1961 Depression Screening 1961 Hepatitis C Screening 1961 DTaP/Tdap/Td Vaccine (1 - Tdap) 1972 Hepatitis B Screening 08/23/1979 Regular Well Visit/Exam 18-64 08/23/1979 Zoster Vaccine (1 of 2) 08/23/2011 Covid-19 Vaccine (4 - 2023-2 5 season) 2024 05/26/2021, 08/12/2020, 07/15/2020 Influenza Vaccine (#1) 2024 Pneumococcal vaccine <65 Aged Out No longer eligible based on patient's age to complete this topic Insurance [facility] CLAIMS [facility] Care Teams Burn Table Operator Relationship Specialty Start Date End Date Aubrie Pederson MD [address] [place] [address] PCP - General 03/29/14
--- OUTSIDE RECORDS SUMMARY | 2024-08-02 08:08 | XMS_ITS | Referral Summary ---
Author Organization [facility] [address] Address [address] [place] [address] Care Team Providers Care Breast Trimmer Name Role Phone Aubrie Pederson MD Primary [...] by mouth daily with dinner Active omega 4-fft-bmm-fish oil 120-180-500 mg capsule Take 1 tablet/capsu [...] HTN (hypertension), benign 03/01/2024 Current use of terminal operations manager anticoagulation 022 Abnormal stress echo 08/28/2021 Overview (08/28/2021): Added automatically from request for surgery [id number] Mitral valve disorder 06/12/2021 Dyslipidemia 06/12/2021 Other [...] of catheter ablation or antiarrhythmic medications (dofetilide). 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 [address] [place] [address] PCP - General 03/29/14
--- OUTSIDE RECORDS SUMMARY | 2024-08-02 08:08 | XMS_ITS | Encounter Summary ---
Author Organization [facility] Address [address] [place] [address] Phone Care Team Providers Care Shank Tapper Name Role Phone Aubrie Pederson MD Primary Care Provider Encounter Details Date Type Department Care Team (Latest Contact Info) Description 06/12/2021 Orders Only [facility] Scanning, Provider Social History Tobacco Use Types Packs/Day Years Used Date Smoking Tobacco: Former Cigarettes Q uit: 05/07/2017 Smokeless Tobacco: Never Alcohol Use Standard Drinks/Week Comments No 0 (1 standard drink = 0.6 oz pur e alcohol) Comments Unknown Sex and Gender Information Value Date Recorded Sex Assigned at Not on file 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 Gender Identity Not on file Sexual Orientation Not on file documented as of this encounter Plan of Treatment Not on file documented as of this encounter Procedures Procedure Name Priority Date/Time Associated Diagnosis Comments CARDIOLOGY DOCUMENT SCAN 06/12/2021 documented in this encounter Results * CARDIOLOGY DOCUMENT SCAN (06/12/2021) Anatomical Region Laterality Modality Other us Provider Scanning [facility] CARDIAC SERVICES PROCEDURES Final Result documented in this encounter Visit Diagnoses Not on filedocumented in this encounter Care Teams Shank Tapper Relationship Specialty Start Date End Date Aubrie Pederson MD [address] [facility] [address] [place] [address] PCP - General 03/29/14 documented as of this encounter
--- OUTSIDE RECORDS SUMMARY | 2024-08-02 08:08 | XMS_ITS | Encounter Summary ---
Author Organization [facility] Address [address] [place] [address] Phone Care Team Providers Care Safemaker Name Role Phone Aubrie Pederson MD Primary Care Provider Encounter Details Date Type Department Care Team (Latest Contact Info) Description 07/03/2021 Orders Only [facility] Scanning, Provider Social History Tobacco Use Types Packs/Day Years Used Date Smoking Tobacco: Former Cigarettes Q uit: 05/07/2017 Smokeless Tobacco: Never Alcohol Use Standard Drinks/Week Comments No 0 (1 standard drink = 0.6 oz pur e alcohol) Comments Unknown Sex and Gender Information Value Date Recorded Sex Assigned at Not on file 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 Gender Identity Not on file Sexual Orientation Not on file documented as of this encounter Plan of Treatment Not on file documented as of this encounter Procedures Procedure Name Priority Date/Time Associated Diagnosis Comments CARDIOLOGY DOCUMENT SCAN 07/03/2021 documented in this encounter Results * SCAN - CARDIOLOGY (07/03/2021) Anatomical Region Laterality Modality Other us Provider Scanning CV CARDIAC SERVICES PROCEDURES Final Result documented in this encounter Visit Diagnoses Not on filedocumented in this encounter Care Teams Safemaker Relationship Specialty Start Date End Date Aubrie Pederson MD [address] [facility] [address] [place] [address] PCP - General 03/29/14 documented as of this encounter
--- OUTSIDE RECORDS SUMMARY | 2024-08-02 08:08 | XMS_ITS | Continuity of Care Document ---
Author Organization [facility] Address [address] [place] [address] Phone Care Team Providers Care Tool And Die Maker/Designer Name Role Phone David PT,MPT,ATC, Bryce Irasema Unavai lable Procedures Procedure Date PT Evaluation Moderate Complexity Therapeutic Exercise Therapeutic Exercise Neuromuscular Re-Ed Manual Therapy Theratube/band Therapeutic Exercise Neuromuscular Re-Ed Manual Therapy Therapeutic Exercise Neuromuscular Re-Ed Manual Therapy Therapeutic Exercise Neuromuscular Re-Ed Manual Therapy Foam Roll Short Therapeutic Exercise Neuromuscular Re-Ed Manual Therapy Therapeutic Exercise Neuromuscular Re-Ed Manual Therapy PT Evaluation Low Complexity Therapeutic Exercise Advance Directives Directive Yes / No Effective Date File Name No Information Encounters Encounter Description Practice Location Reason(s) For Visit Diagnoses Date Provider Providers Copied on Encounter [facility], [address], [place], [place], [id number], [place] tel:[phone] [place] Lumbago with sciatica, right sideCervicalgia Pain in left hip -[address] [place], [place]. Referring Provider: Aubrie Pederson , [address] [facility] , [place], [address]. tel:[phone] [facility], [place], [place], [address], [place] tel:[phone] [place] No Information [address]. , [place], [place]. Referring Provider: Aubrie Pederson , [address] [facility], [place], [address]. tel:[phone] [facility], [place], [place], [address], [place] tel:[phone] [place] No Information [place]. , [place], [place]. Referring Provider: Aubrie Pederson , [address] [facility], [place], [address]. tel:[phone] [facility], [place], [place], [address], [place] tel:[phone] [place] No Information [address] [place] , [place], [place]. Referring Provider: Aubrie Pederson , [address] [facility], [place], [address]. tel:[phone] [facility], [place], [place], [address], [place] tel:[phone] [place] No Information [address] [place] , [place], [place]. Referring Provider: Aubrie Pederson , [address] [facility], [place], [address]. tel:[phone] [facility], [place], [place], [address], [place] tel:[phone] [place] No Information [address] [place] , [place], [place]. Referring Provider: Aubrie Pederson , [address] [facility], [place], [address]. tel:[phone] [facility], [place], [place], [address], tel:[phone] [place] No Information [facility]. Referring Provider: Aubrie Pederson , [address] [facility], [place], [address]. tel:[phone] [facility], [address], [place], [place], [address], tel:[phone] [place] Spondyls w/o myelopathy or radiculopathy, lumbosacr region [place], [place], . Referring Provider: Aubrie Pederson , [address] [facility], [place], [address]. tel:[phone] Family History Family Member Type Diagnosis Age At Onset No Information Payers Payer name Insurance type Covered democrat ID Authoriza tion(s) No Information Social History Type Description Quantity Date Captured Comments Sex Female Smoking Status No Information Chief Complaint And Reason For Visit No Information Reason For Referral Reason For Referral No Information History Of Present Illness Encounter Date Complaint History Of Prese nt Illness No Information Functional Status Date Functional Assessmen t No Information Instructions Date Instruction Additional Infor mation No Information Assessments Type Assessment Date No Information Patient Care Teams Name Effective Dates (start - stop) Status Members No Information
--- OUTSIDE RECORDS SUMMARY | 2024-08-02 08:11 | XMS_ITS | Continuity of Care Document ---
Author Organization [facility] Address [address] [place] [address] Phone Care Team Providers Care Construction Safety Consultant Name Role Phone David PT,MPT,ATC, Bryce Irasema [...] Diagnoses Date Provider Providers Copied on Encounter [facility], [address], [place], [place], [id number], [place] tel:[phone] [place] Lumbago with sciatica, right sideCervicalgia Pain in left hip -[address] [place], [place]. Referring Provider: Aubrie Pederson , [address] [facility] , [place], [address]. tel:[phone] [facility], [place], [place], [address], [place] tel:[phone] [place] No Information [address] [place]. , [place], [place]. Referring Provider: Aubrie Pederson , [address] [facility], [place], [address]. tel:[phone] [facility], [place], [place], [address], [place] tel:[phone] [place] No Information [place]. , [place], [place]. Referring Provider: Aubrie Pederson , [address] [facility], [place], [address]. tel:[phone] [facility], [place], [place], [address], [place] tel:[phone] [place] No Information [address] [place] , [place], [place]. Referring Provider: Aubrie Pederson , [address] [facility], [place], [address]. tel:[phone] [facility], [place], [place], [address], [place] tel:[phone] [place] No Information [address] [place] , [place], [place]. Referring Provider: Aubrie Pederson , [address] [facility], [place], [address]. tel:[phone] [facility], [place], [place], [address], [place] tel:[phone] [place] No Information [address] [place] , [place], [place]. Referring Provider: Aubrie Pederson , [address] [facility], [place], [address]. tel:[phone] [facility], [place], [place], [address], tel:[phone] [place] No Information [facility]. Referring Provider: Aubrie Pederson , [address] [facility], [place], [address]. tel:[phone] [facility], [address], [place], [place], [address], tel:[phone] [place] Spondyls w/o myelopathy or radiculopathy, lumbosacr region [place], [place], . Referring Provider: Aubrie Pederson , [address] [facility], [place], [address]. tel:[phone] Family History Family Member Type Diagnosis Age At Onset No Information Payers Payer name Insurance type Covered libertarian ID Authoriza tion(s) No Information Social History [...]
--- NOTE | 2024-08-02 08:12 | ED_ITS ---
HPI - General Adult General Chief complaint: Upper Respiratory Infection Stated complaint: cough Time Seen by Provider: 08/02/24 08:12 Source: patient Mode of arrival: ambulatory Limitations: no limitations History of Present Illness HPI narrative: 63-year-old female patient presents to [facility] with complaints of a cough for the past week. Patient states that she has had a lot of congestion runny nose recently. Patient states she does have chronic allergies but is unable to take antihistamines because it messes with her heart rate. Patient states she does take a Flonase nasal spray. Patient states she is currently on steroids for a sciatic flare up. Patient states the cough is typically worse when she tries to lay down at night and is also worse when she 1st gets up in the morning. Patient states she does cough up a lot of phlegm specifically in the morning typically does not have any issues throughout the day. Denies any chest pain or shortness of breath at this time. Denies any fevers, body aches or chills. Denies any nausea, vomiting or diarrhea. Related Data Home Medications ?Medication ?Instructions ?Recorded ?Confirmed ?Last Taken ?Type fluticasone propionate 93 2 spray intranasal Q12H 12/27/23 07/23/24 Unknown History mcg/actuation breath activated aerosol (Xhance) Allergies Allergy/AdvReac Type Severity Reaction Status Date / Time doxycycline Allergy Mild hives Verified 08/02/24 08:16 metronidazole Allergy Mild hives Verified 08/02/24 08:16 azithromycin Allergy Palpitation Verified 08/02/24 08:16 s buspirone (From BuSpar) AdvReac Intermediate elevated BP Verified 08/02/24 08:16 metoprolol AdvReac Intermediate Other Verified 08/02/24 08:16 Review of Systems Review of Systems: CONSTITUTIONAL: Denies fever, chills, or sweats. EYES: Denies visual changes, redness, or discharge. ENT: positive rhinorrhea, congestion, denies sore throat, or otalgia. CARDIOVASCULAR: Denies chest pain, palpitations, or edema. RESPIRATORY: Positive cough denies dyspnea. GASTROINTESTINAL: Denies abdominal pain, nausea, vomiting, or diarrhea. GENITOURINARY: Denies dysuria or hematuria. SKIN: Denies rash or itching. MUSCULOSKELETAL: Denies back pain, joint pain, or myalgia. NEUROLOGIC: Denies headache, numbness, or weakness. PSYCHIATRIC: Denies anxiety or depression. COUNTS INCLUDE 234 BEDS AT THE [facility] Past Medical History Medical History Constipation by delayed colonic transit Bronchitis Sinusitis PVC (premature ventricular contraction) Palpitations PAF (paroxysmal atrial fibrillation) Atrial fibrillation with RVR Vulval lesion Vaginitis and vulvovaginitis Trigeminal nerve palsy Tobacco use disorder Stress reaction Sore throat Seasonal affective disorder in remission Right sided sciatica Panic attacks Other seasonal allergic rhinitis Neck pain Mixed hyperlipidemia Low TSH level Hip pain, left Enlarged thyroid Dermatofibroma of right calf Contact allergic reaction CAP (community acquired pneumonia) Breast screening Breast mass, right Acute upper respiratory infection Acute right-sided low back pain with right-sided sciatica Acute right eye pain Acute maxillary sinusitis Acute bronchitis Left elbow pain Right elbow pain Poison prince Shingles rash Low blood pressure Vertigo Dizziness Trochanteric bursitis of right hip Breast cancer screening Sacroiliac joint dysfunction Rash Back pain Anticoagulant adverse reaction Hemorrhoid Nausea Atrial premature beats Mitral valve prolapse Chest pain Anxiety History of atrial fibrillation Essential hypertension Atrial fibrillation with RVR Trigeminal neuralgia of right side of face Drug eruption Tobacco consumption Well woman exam with routine gynecological exam Allergic reaction due to correct medicinal substance properly administered De Quervain's disease (radial styloid tenosynovitis) Gastritis and duodenitis Resulting in GI bleed 2017 GERD (gastroesophageal reflux disease) MURTAZA (generalized anxiety disorder) PVC (premature ventricular contraction) Surgical History Surgical History History of oophorectomy, unilateral Resection of ovarian cyst H/O colonoscopy with polypectomy (~03/2020) repeat in 2024 Family History Family History Father Hypertension Acute myocardial infarction, Onset Age: 75 Hyperlipidemia Sibling Schizophrenia Brother Mother , At age 82 after falling on stairs. Hypertension Social History Social History Social History: She lives with her of 10 years. 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 She denies any alcohol or illicit substance use. She smoked as much as a half a pack of cigarettes per day time she has teenager into the age of 56. Primary care physician: Dr. Aubrie Pederson Code status: Full code Surrogate decision maker: Smoking packs per day: 0.25 Smoking cigarettes per day: 5.0 Years smoked: 30 Smoking pack-years: 7.50 Smoking status: Former smoker Tobacco type: cigarettes Second hand tobacco smoke exposure: No Smoking end date: 05/06/16 Alcohol intake: never Substance use: never Substance use type: does not use Do You Feel Safe in your Home?: Yes Lack of Transportation: No Lack of Food: Never True Current Housing: I Have Housing Concerned About Future Housing: No Difficulty Paying Gas/Electric Bills: No Difficulty Paying for Meds: No Currently Unemployed: YES Education: Bachelor's Degree Difficulty w/ Childcare or Family Care: No Living arrangements: with family Occupation/Education: retired Additional occupation/education comments: Speech Pathologist Gender identity (if verbalized by the patient): Female Sexual Orientation (if Verbalized by the Patient): Straight or Heterosexual Spiritual care concerns: No Comments At the time of my signature I agree with nursing past medical history, surgical, social, and family history. There is no relevant family history pertinent to the presenting complaint. Exam Narrative: GENERAL: Well-appearing, well-nourished, and in no acute distress. HEAD: Normocephalic, atraumatic. EYES: PERRLA and EOMI. ENT: Nares with erythema edema noted bilaterally, no rhinorrhea or epistaxis. Mucous membranes moist. posterior pharynx with no erythema, tonsillar enlargement, exudates or lesions present. Bilateral TMs are clear no erythema or foreign bodies the canal. NECK: Supple. No lymphadenopathy CHEST: Clear to auscultation. No respiratory distress. Patient able talk in clear complete sentences. HEART: Regular rate and rhythm. No murmur heard. Normal peripheral pulses. ABDOMEN: Soft, nontender, nondistended, normal active bowel sounds. EXTREMITIES: Normal range of motion. No edema. SKIN: Warm, dry, no rash. NEURO: No focal deficits. Alert and oriented x3. Course Course Level of Care: Express Care Visit Vital Signs Vital signs: Vital Signs Temperature 36.4 C 08/02/24 08:14 Pulse Rate 77 08/02/24 08:14 Respiratory Rate 18 08/02/24 08:14 Blood Pressure 137/78 08/02/24 08:14 Pulse Oximetry 99 08/02/24 08:14 Oxygen Delivery Room Air 08/02/24 08:14 Temperature 36.4 C 08/02/24 08:14 Pulse Rate 77 08/02/24 08:14 Respiratory Rate 18 08/02/24 08:14 Blood Pressure 137/78 08/02/24 08:14 Pulse Oximetry 99 08/02/24 08:14 Oxygen Delivery Room Air 08/02/24 08:14 Vital signs reviewed. The patient has been informed that they may have pre-hypertension or H ypertension based on a BP reading in the department. I recommend that the patient call the primary care provider listed on their discharge instructions or a physician of their choice this week to arrange follow up for further evaluation of possible pre-hypertension or Hypertension Medical Decision Making MDM Narrative Medical decision making narrative: Discussed with patient that it does appear that her drainage is most likely causally causing her cough. Discussed with patient that her lungs are nice and clear and the fact that she does not have any other symptoms of body aches, chills or fevers is reassuring. Discussed with patient that I will give her some Tessalon Perles to help with the cough but ultimately she may need to do some sinus rinses or things to decrease the drainage to help her cough. Patient did ask about hill Turodriguezin. Discussed with her that there is no evidence that a coding or a narcotic helps with cough so therefore we will not be prescribing narcotics for cough today. As well as this most likely will not help her sinus drainage. Patient verbalized understanding denies any other questions or concerns at this time. Differential Diagnosis Differential Diagnosis: Differential diagnosis: Allergic rhinitis, chronic sinusitis, tonsillitis, acute sinusitis, infectious mononucleosis, seasonal influenza, pertussis, diphtheria, meningococcal disease, viral syndrome, viral bronchitis, RSV, COVID- 19 Vital Signs Vital Signs: Vital Signs Temperature 36.4 C 08/02/24 08:14 Pulse Rate 77 08/02/24 08:14 Respiratory Rate 18 08/02/24 08:14 Blood Pressure 137/78 08/02/24 08:14 Pulse Oximetry 99 08/02/24 08:14 Oxygen Delivery Room Air 08/02/24 08:14 Temperature 36.4 C 08/02/24 08:14 Pulse Rate 77 08/02/24 08:14 Respiratory Rate 18 08/02/24 08:14 Blood Pressure 137/78 08/02/24 08:14 Pulse Oximetry 99 08/02/24 08:14 Oxygen Delivery Room Air 08/02/24 08:14 Critical Care Time Critical Care Time Critical Care Time: No Discharge Plan Discharge Clinical Impression: Viral URI with cough Patient Disposition: Home, Self-Care Condition: Stable Instructions: Antibiotic Form, Acute Cough (ED) Additional Instructions: Viral illness may last between 7-12days; antibiotic is NOT recommended at this time. Recommend antihistamine such as Benadryl at night time and Claritin/Zyrtec/Marianna during the day Cough syrup may cause drowsiness; avoid driving or take it at night time. Also, recommend symptomatic treatment includes: rest, fluids, and increase humidity of the air at home. Recommend Acetaminophen or nonsteroidal anti-inflammatory agents (NSAIDs) as directed in the bottle to reduce fever and/pain/headache. Avoid smoking/second-hand smoke. Limit visits to areas with large crowds. Please schedule a follow-up visit with your personal physician for further evaluation and treatment within 3-5days. Including recheck and discussion of your blood pressure. If your symptoms persist, change or worsen significantly before you can contact your personal physician then please, without delay, go to the emergency department for further evaluation. Patient Language: Tuvaluan Prescriptions: New benzonatate 200 mg capsule 200 mg PO TID PRN (Reason: cough) 10 Days Qty: 30 0RF No Action Xhance 93 mcg/actuation aerosol breath activated 2 spray intranasal Q12H Patient Comments: per ENT Rx Instructions: into each nostril scopolamine base 1 mg over 3 days patch 3 day 1 patch transdermal Q3D Qty: 10 0RF esomeprazole magnesium 40 mg capsule,delayed release(DR/EC) See Rx Instructions .ROUTE .COMPLEX Qty: 60 2RF Dose Instruction: TAKE 1 CAPSULE BY MOUTH TWICE DAILY Rx Instructions: TAKE 1 CAPSULE BY MOUTH DAILY alprazolam 0.25 mg tablet 0.25 mg PO HS PRN (Reason: Anxiety) Qty: 90 0RF escitalopram oxalate 5 mg tablet See Rx Instructions .ROUTE .COMPLEX Qty: 90 2RF Dose Instruction: TAKE 1 TABLET BY MOUTH DAILY Rx Instructions: TAKE 1 TABLET BY MOUTH DAILY lisinopril 5 mg tablet See Rx Instructions .ROUTE .COMPLEX Qty: 90 1RF Dose Instruction: TAKE 1 TABLET BY MOUTH DAILY Rx Instructions: TAKE 1 TABLET BY MOUTH DAILY rosuvastatin 10 mg tablet See Rx Instructions .ROUTE .COMPLEX Qty: 90 1RF Dose Instruction: TAKE 1 TABLET BY MOUTH DAILY Rx Instructions: TAKE 1 TABLET BY MOUTH DAILY Xarelto 20 mg tablet 20 mg PO DAILY Qty: 90 1RF Rx Instructions: must administer with evening meal bupropion HCl [Wellbutrin SR] 100 mg tablet sustained-release 12 hr 100 mg PO BID Qty: 180 1RF diltiazem HCl 60 mg capsule,extended release 12 hr See Rx Instructions .ROUTE .COMPLEX Qty: 180 1RF Dose Instruction: TAKE 1 CAPSULE BY MOUTH TWICE DAILY Rx Instructions: TAKE 1 CAPSULE BY MOUTH TWICE DAILY azelastine 137 mcg (0.1 %) spray,non-aerosol 1 spray intranasal Q12H PRN (Reason: allergy symptoms) Qty: 30 2RF Rx Instructions: administer into each nostril albuterol sulfate 90 mcg/actuation HFA aerosol inhaler 1 inh inhalation Q4H PRN (Reason: shortness of breath or wheezing) Qty: 6.7 0RF Follow-up/Referrals: Saw Hinton MD [Primary Care Provider] - Time of Disposition: 08:28
[2024-08-02 08:14] VITALS: BP 137/78; PULSE 77; RESP 18; TEMP 36.4; O2SAT 99
== END 2024-08-02 08:30 | disposition home or self-care (01) ==
PROVIDERS: Emergency Provider Nurse Practitioner Family; PCP Family Medicine
DX: J06.9 Acute upper respiratory infection, unspecified (principal); R05.9 Cough, unspecified; Z87.891 Personal history of nicotine dependence; I48.0 Paroxysmal atrial fibrillation; E78.2 Mixed hyperlipidemia; I10 Essential (primary) hypertension; K21.9 Gastro-esophageal reflux disease without esophagitis
CPT/HCPCS: 99213; G0463

== ENCOUNTER 2024-08-03 11:42 | Outpatient (CLI) | payer OTHER, SELFPAY ==
--- NOTE | ~2024-08-03 | XR_ITS ---
Lumbosacral Spine: AP and lateral views Clinical History: Pain Findings: There is mild dextroscoliosis. There is reversal of the normal lumbar lordosis. There is mi nimal grade 1 anterolisthesis of L1 over L2. There is moderate to advanced degenerative spurring at L 1-L2 and L2-L3. There is moderate to advanced facet arthropathy throughout the lumbar spine. The sacr oiliac joints are normally outlined. Impression: Moderate to advanced degenerative spondylosis, as above. Reviewed, dictated and finalized at location M. Impression: Moderate to advanced degenerative spondylosis, as above.
--- OUTSIDE RECORDS SUMMARY | 2024-08-03 13:11 | XMS_ITS | Clinical Summary ---
Author Organization [facility] [address] Address [address] [place] [address] Care Team Providers Care Technical Instructor Name Role Phone Aubrie Pederson MD Primary [...] by mouth daily with dinner Active omega 7-xoi-kok-fish oil 120-180-500 mg capsule Take 1 tablet/capsu [...] HTN (hypertension), benign 03/01/2024 Current use of intermodal customer service anticoagulation 022 Abnormal stress echo 08/28/2021 Overview (08/28/2021): Added automatically from request for surgery [id number] Mitral valve disorder 06/12/2021 Dyslipidemia 06/12/2021 Other [...] on file 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
--- OUTSIDE RECORDS SUMMARY | 2024-08-03 13:11 | XMS_ITS | Referral Summary ---
Author Organization [facility] [address] Address [address] [place] [address] Care Team Providers Care Pattern Illustrator Name Role Phone Aubrie Pederson MD Primary [...] by mouth daily with dinner Active omega 8-ppt-ppm-fish oil 120-180-500 mg capsule Take 1 tablet/capsu [...] HTN (hypertension), benign 03/01/2024 Current use of long term acute care registered nurse anticoagulation 022 Abnormal stress echo 08/28/2021 Overview (08/28/2021): Added automatically from request for surgery [id number] Mitral valve disorder 06/12/2021 Dyslipidemia 06/12/2021 Other [...] on file 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
--- OUTSIDE RECORDS SUMMARY | 2024-08-03 13:11 | XMS_ITS | Encounter Summary ---
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 [address] [place] [address] PCP - General 03/29/14 documented as of this encounter
--- OUTSIDE RECORDS SUMMARY | 2024-08-03 13:11 | XMS_ITS | Encounter Summary ---
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
== END 2024-08-03 11:43 | disposition home or self-care (01) ==
PROVIDERS: PCP Family Medicine; Visit Provider Physician Assistant
DX: M47.817 Spondylosis without myelopathy or radiculopathy, lumbosacral region (principal); M54.50 Low back pain, unspecified
CPT/HCPCS: 72100

== ENCOUNTER 2024-08-30 07:27 | Outpatient (CLI) | payer OTHER, SELFPAY ==
--- NOTE | ~2024-08-30 | MR_ITS ---
EXAMINATION: MR lumbar spine wo con DATE: 08/30/2024 08:11 INDICATION: Low back pain TECHNIQUE: Magnetic resonance imaging (MRI) of the lumbar spine was performed without intravenous con trast. Sequences included sagittal T2-weighted FSE, sagittal T2-weighted FS FSE, sagittal T1-weighted FSE, and axial T2-weighted FSE. COMPARISON: None FINDINGS: 8 degrees lumbar dextrocurvature. 2 mm anterolisthesis L1 on L2 and 2 mm retrolisthesis L4 on L5. Chr onic minimal anterior wedging at L2. There are Schmorl's nodes along a few of the endplates in the lo wer thoracic and upper lumbar spine. Normal marrow signal. Moderate disc height loss at L1-L2, L2-L3 and L4-L5 and mild disc height loss at L3-L4. The conus medullaris terminates at L1-L2. There is nor mal signal in the caudal spinal cord. Paravertebral soft tissues are unremarkable. The following disc levels are specifically discussed: T12-L1: The disc does not extend beyond the endplate margin. There is mild bilateral facet joint oste oarthritis. There is no neural foraminal stenosis. There is no central canal stenosis. L1-L2: Disc is mildly bulging. There is altered left and moderate right facet joint osteoarthritis. T here is mild bilateral neural foraminal stenosis. There is mild central canal stenosis. L2-L3: Disc is bulging. There is a bilateral facet joint osteoarthritis. There is minimal bilateral n eural foraminal stenosis. There is mild central canal stenosis. L3-L4: Disc is bulging. There is moderate bilateral facet joint osteoarthritis. There is mild right a nd mild to moderate left neural foraminal stenosis. There is mild central canal stenosis. L4-L5: Disc is bulging with annular fissure. There is altered left and moderate right facet joint ost eoarthritis. There is moderate bilateral neural foraminal stenosis. There is mild central canal steno sis. L5-S1: Disc is mildly bulging. There is moderate bilateral facet joint osteoarthritis. There is mild bilateral neural foraminal stenosis. There is no central canal stenosis. IMPRESSION: 1. 8 degrees lumbar dextrocurvature with moderate spondylosis. Reviewed, dictated and finalized at location B.
--- OUTSIDE RECORDS SUMMARY | 2024-08-30 07:30 | XMS_ITS | Clinical Summary ---
Author Organization [facility] [address] Address [address] [place] [address] Care Team Providers Care Work Checker Name Role Phone Aubrie Pederson MD Primary [...] by mouth daily with dinner Active omega 9-rfx-rzs-fish oil 120-180-500 mg capsule Take 1 tablet/capsu [...] HTN (hypertension), benign 03/01/2024 Current use of roasterman anticoagulation 022 Abnormal stress echo 08/28/2021 Overview (08/28/2021): Added automatically from request for surgery [id number] Mitral valve disorder 06/12/2021 Dyslipidemia 06/12/2021 Other [...] on file 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 CLAIMS [facility] Care Teams Work Checker Relationship Specialty Start Date End Date Aubrie Pederson MD [address] [place] [address] PCP - General 03/29/14
--- OUTSIDE RECORDS SUMMARY | 2024-08-30 07:30 | XMS_ITS | Encounter Summary ---
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
--- OUTSIDE RECORDS SUMMARY | 2024-08-30 07:30 | XMS_ITS | Encounter Summary ---
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
--- OUTSIDE RECORDS SUMMARY | 2024-08-30 07:30 | XMS_ITS | Referral Summary ---
Author Organization [facility] [address] Address [address] [place] [address] Care Team Providers Care Paper Bag Press Operator Name Role Phone Aubrie Pederson MD [...] by mouth daily with dinner Active omega 1-hak-lia-fish oil 120-180-500 mg capsule Take 1 tablet/capsu [...] HTN (hypertension), benign 03/01/2024 Current use of ferry terminal supervisor anticoagulation 022 Abnormal stress echo 08/28/2021 Overview (08/28/2021): Added automatically from request for surgery [id number] Mitral valve disorder 06/12/2021 Dyslipidemia 06/12/2021 Other [...] on file 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
--- OUTSIDE RECORDS SUMMARY | 2024-08-30 07:30 | XMS_ITS | Continuity of Care Document ---
Author Organization [facility] Address [address] [place] [address] Phone Care Team Providers Care Receptionist Clerk Name Role Phone David PT,MPT,ATC, Bryce Irasema [...] Diagnoses Date Provider Providers Copied on Encounter [facility], [address], [place], [place], [id number], [place] tel:[phone] [facility] Lumbago with sciatica, right sideCervicalgia Pain in left hip -[address] [place], [place]. Referring Provider: Aubrie Pederson , [address] [facility] , [place], [address]. tel:[phone] [facility], [place], [place], [address], [place] tel:[phone] Gir[facility] No Information [address]. , [place], [place]. Referring Provider: Aubrie Pederson , [address] [facility], [place], [address]. tel:[phone] [facility], [place], [place], [address], [place] tel:[phone] Gir[place] No Information [place]. , [place], [place]. Referring Provider: Aubrie Pederson , [address] [facility], [place], [address]. tel:[phone] [facility], [place], [place], [id number], [place] tel:[phone] Gir[facility] No Information [address] [place]. , [place], [place]. Referring Provider: Aubrie Pederson , [address] [facility], [place], [address]. tel:[phone] [facility], [place], [place], [address], [place] tel:[phone] [facility] No Information [address] [place]. , [place], [place]. Referring Provider: Aubrie Pederson , [address] [facility], [place], [address]. tel:[phone] [facility], [place], [place], [address], [place] tel:[phone] [facility] No Information [address] [place] , [place], [place]. Referring Provider: Aubrie Pederson , [address] [facility], [place], [address]. tel:[phone] [facility], [place], [place], [address], tel:[phone] Gir[facility] No Information [facility]. Referring Provider: Aubrie Pederson , [address] [facility], [place], [address]. tel:[phone] [facility], [address], [place], [place], [address], tel:[phone] [facility] Spondyls w/o myelopathy or radiculopathy, lumbosacr region [place], [place], . Referring Provider: Aubrie Pederson , [address] [facility], [place], [address]. tel:[phone] Family History Family Member Type Diagnosis Age At Onset No Information Payers Payer name Insurance type Covered green party ID Authoriza tion(s) No Information Social History [...]
== END 2024-08-30 07:28 | disposition home or self-care (01) ==
PROVIDERS: PCP Family Medicine; Visit Provider Physician Assistant
DX: M47.896 Other spondylosis, lumbar region (principal)
CPT/HCPCS: 72148

== ENCOUNTER 2024-10-29 07:08 | Outpatient (CLI) | payer OTHER, SELFPAY ==
--- NOTE | ~2024-10-29 | XR_ITS ---
EXAMINATION: XR UGIAC w small bowel DATE: 10/29/2024 10:05 INDICATION: Burning abdominal pain with nausea and bloating TECHNIQUE: The patient drank thick barium, gas-producing crystals, and thin barium. Conventional supi ne abdomen radiographs and fluoroscopic spot radiographs of the esophagus, stomach, and proximal smal l bowel were obtained. Additional overhead radiographs were obtained during the transit through the s mall bowel. Spot fluoroscopic images of the small bowel were obtained upon contrast reaching the cec um. A total of 547 fluoroscopic images and 8 overhead radiographs were obtained. Fluoroscopy exposure time was 1.3 minutes. Total DAP was 95.337 mGycm^2. COMPARISON: None. FINDINGS: The esophagus is normal without mass or stricture. Esophageal motility is normal. There is no hiatal hernia. There was no gastroesophageal reflux with provocative maneuvers. The stomach and proximal sma ll bowel are normal. Transit time from the stomach to proximal colon was approximately 1 hour. There is normal caliber and mucosal fold pattern throughout the small bowel. Terminal ileum is normal. No tethering or abnorma l mass effect observed upon the small bowel with real-time fluoroscopy. IMPRESSION: 1. Normal upper GI and small bowel follow-through study. Reviewed, dictated and finalized at location A.
== END 2024-10-29 07:09 | disposition home or self-care (01) ==
PROVIDERS: PCP Family Medicine; Visit Provider Internal Medicine Gastroenterology
DX: K21.9 Gastro-esophageal reflux disease without esophagitis (principal); R11.2 Nausea with vomiting, unspecified; R14.0 Abdominal distension (gaseous); R10.9 Unspecified abdominal pain
CPT/HCPCS: 74246; 74248

== ENCOUNTER 2024-11-02 07:35 | Outpatient (CLI) | payer OTHER, SELFPAY ==
--- NOTE | ~2024-11-02 | NM_ITS ---
EXAM: NM gastric emptying study DATE: 11/02/2024 13:18 INDICATION: Gastroesophageal reflux disease without esophagitis TECHNIQUE: A gastric emptying study was performed using the methodology of Kareem CALVILLO, et al. J Nucl Med 2007; 48:568-572. The patient was given a meal consisting of 2 scrambled eggs labeled with 1.01 mCi Tc-99m sulfur colloid, 2 slices of toast, two packages of jam, and approximately 120 mL of water. Simultaneous anterior and posterior 1-min images of the abdomen were obtained with the patient supin e at multiple time points over a total period of 4 hours. The geometric mean of anterior and posterio r views was determined, and the percentage retention was calculated for each time point. COMPARISON: None. FINDINGS: Gastric retention of the radiotracer-labeled meal was 73%, 46%, and 3% at the 1-hour, 2-hour, and 4-h our time points, respectively. With this technique, apparent rapid gastric emptying is suggested by < 30% gastric retention at 1 hour. Delayed gastric emptying is defined by gastric retention of >90% at 1 hour, >60% retention at 2 hours, or >10% retention at 4 hours. No evident reflux activity in the es ophagus. IMPRESSION: 1. Normal gastric emptying. Reviewed, dictated and finalized at location B. IMPRESSION: 1. Normal gastric emptying.
== END 2024-11-02 07:36 | disposition home or self-care (01) ==
PROVIDERS: PCP Family Medicine; Visit Provider Internal Medicine Gastroenterology
DX: K21.9 Gastro-esophageal reflux disease without esophagitis (principal); I10 Essential (primary) hypertension
CPT/HCPCS: 78264; A9541

== ENCOUNTER 2025-04-09 13:46 | Outpatient (CLI) | payer OTHER, SELFPAY ==
--- NOTE | ~2025-04-09 | CT_ITS ---
EXAMINATION: CT soft tissue neck chest w DATE: 04/09/2025 14:22 INDICATION: Paralysis of vocal cords and larynx, unspecified. TECHNIQUE: Computed tomography (CT) of the neck and chest was performed with 75 mL Omnipaque-350 intravenous contrast. Automated exposure control and iterative reconstruction technique were employed. The dose-length product was 597.63 mGy-cm. COMPARISON: None FINDINGS: CT NECK: There are calcifications of the palatine tonsils. There are no pathologically enlarged lymph nodes. The major salivary glands are normal. There is plaque in the proximal internal carotid arteries with less than 50% stenosis relative to normal distal artery lumen diameters. There is severe cervical spondylosis. CT CHEST: There is mild emphysema. There is a 5 mm nodule in right upper lobe, likely benign. There is a 3 mm nodule in left upper lobe, likely benign. There is mild atelectasis bilaterally. No pleural effusion. The heart size is normal. No pericardial effusion. There are no pathologically enlarged lymph nodes. There is mild thoracic spondylosis. There is mild chronic anterior wedging of multiple mid thoracic vertebral bodies. IMPRESSION: 1. No etiology for the patient's symptoms. 2. Mild emphysema. Reviewed, dictated and finalized at location E. N WEIGHER
[2025-04-09 14:12] LABS: Estimated Glomerular Filt Rate 56
== END 2025-04-09 13:47 | disposition home or self-care (01) ==
PROVIDERS: PCP Family Medicine; Visit Provider Otolaryngology
DX: J38.00 Paralysis of vocal cords and larynx, unspecified (principal); L73.9 Follicular disorder, unspecified; R49.0 Dysphonia; J43.9 Emphysema, unspecified
CPT/HCPCS: 70491; 71260; Q9967